=== PATIENT | female | born 1960 | race Caucasian/White ===

== ENCOUNTER → 2019-10-31 08:48 | Outpatient (BNVA) | payer MEDICAID, SELFPAY | PROVIDERS: Family Provider Nurse Practitioner; PCP Nurse Practitioner; Visit Provider Anesthesiology | DX: M54.5 Low back pain (principal); Z79.891 Long term (current) use of opiate analgesic; Z71.89 Other specified counseling | CPT/HCPCS: 62323; 64483; 77003; J1040; J2001; J3490 ==

== ENCOUNTER → 2019-12-13 14:55 | Outpatient (BNVA) | payer MEDICAID, SELFPAY | PROVIDERS: Family Provider Nurse Practitioner; PCP Nurse Practitioner; Visit Provider Anesthesiology | DX: M43.12 Spondylolisthesis, cervical region (principal); M47.22 Other spondylosis with radiculopathy, cervical region; M25.511 Pain in right shoulder; M25.512 Pain in left shoulder; M47.819 Spondylosis without myelopathy or radiculopathy, site unspecified; M47.27 Other spondylosis with radiculopathy, lumbosacral region; M54.81 Occipital neuralgia; M51.36 Other intervertebral disc degeneration, lumbar region; G43.709 Chronic migraine without aura, not intractable, without status migrainosus; F17.210 Nicotine dependence, cigarettes, uncomplicated | CPT/HCPCS: 99214 ==

== ENCOUNTER → 2020-01-02 08:50 | Outpatient (BNVA) | payer MEDICAID, SELFPAY | PROVIDERS: Family Provider Nurse Practitioner; PCP Nurse Practitioner; Visit Provider Anesthesiology | DX: M47.22 Other spondylosis with radiculopathy, cervical region (principal); M43.12 Spondylolisthesis, cervical region; M50.90 Cervical disc disorder, unspecified, unspecified cervical region; M47.819 Spondylosis without myelopathy or radiculopathy, site unspecified; M54.81 Occipital neuralgia; F17.210 Nicotine dependence, cigarettes, uncomplicated | CPT/HCPCS: 62321; J1040; J2001 ==

== ENCOUNTER → 2020-01-09 14:13 | Outpatient (BNVA) | payer MEDICAID, SELFPAY | PROVIDERS: Family Provider Nurse Practitioner; PCP Nurse Practitioner; Visit Provider Anesthesiology | DX: M50.90 Cervical disc disorder, unspecified, unspecified cervical region (principal); M47.22 Other spondylosis with radiculopathy, cervical region; M43.12 Spondylolisthesis, cervical region; M51.36 Other intervertebral disc degeneration, lumbar region; M47.27 Other spondylosis with radiculopathy, lumbosacral region; F17.210 Nicotine dependence, cigarettes, uncomplicated; Z79.891 Long term (current) use of opiate analgesic | CPT/HCPCS: 99214 ==

== ENCOUNTER → 2020-02-25 12:42 | Outpatient (BNVA) | payer MEDICAID, SELFPAY | PROVIDERS: Family Provider Nurse Practitioner; PCP Nurse Practitioner; Visit Provider Nurse Practitioner | DX: M47.22 Other spondylosis with radiculopathy, cervical region (principal); M50.90 Cervical disc disorder, unspecified, unspecified cervical region; G47.00 Insomnia, unspecified; F17.210 Nicotine dependence, cigarettes, uncomplicated; Z79.891 Long term (current) use of opiate analgesic; Z71.6 Tobacco abuse counseling | CPT/HCPCS: 99214 ==

== ENCOUNTER → 2020-06-02 12:38 | Outpatient (BNVA) | payer MEDICAID, SELFPAY | PROVIDERS: Family Provider Nurse Practitioner; PCP Nurse Practitioner; Visit Provider Anesthesiology | DX: M50.90 Cervical disc disorder, unspecified, unspecified cervical region (principal); M47.22 Other spondylosis with radiculopathy, cervical region; M43.12 Spondylolisthesis, cervical region; G43.709 Chronic migraine without aura, not intractable, without status migrainosus; M54.81 Occipital neuralgia; M51.36 Other intervertebral disc degeneration, lumbar region; M47.27 Other spondylosis with radiculopathy, lumbosacral region; M47.819 Spondylosis without myelopathy or radiculopathy, site unspecified; M54.9 Dorsalgia, unspecified; F17.210 Nicotine dependence, cigarettes, uncomplicated; Z79.891 Long term (current) use of opiate analgesic | CPT/HCPCS: 99214 ==

== ENCOUNTER → 2020-06-18 11:23 | Outpatient (BNVA) | payer MEDICAID, SELFPAY | PROVIDERS: Family Provider Nurse Practitioner; PCP Nurse Practitioner; Visit Provider Nurse Practitioner Family | DX: I10 Essential (primary) hypertension (principal); E78.2 Mixed hyperlipidemia; E55.9 Vitamin D deficiency, unspecified; E04.1 Nontoxic single thyroid nodule; D50.8 Other iron deficiency anemias | CPT/HCPCS: 80053; 80061; 82306; 84443; 85025 ==

== ENCOUNTER → 2020-07-02 11:31 | Outpatient (BNVA) | payer MEDICAID, SELFPAY | PROVIDERS: Family Provider Nurse Practitioner; PCP Nurse Practitioner; Visit Provider Nurse Practitioner Family | DX: N30.20 Other chronic cystitis without hematuria (principal); N39.0 Urinary tract infection, site not specified; F17.210 Nicotine dependence, cigarettes, uncomplicated | CPT/HCPCS: 80053; 81001 ==

== ENCOUNTER → 2020-07-31 12:44 | Outpatient (BNVA) | payer MEDICAID, SELFPAY | PROVIDERS: Family Provider Nurse Practitioner; PCP Nurse Practitioner; Visit Provider Anesthesiology | DX: M51.36 Other intervertebral disc degeneration, lumbar region (principal); M47.819 Spondylosis without myelopathy or radiculopathy, site unspecified; M43.12 Spondylolisthesis, cervical region; M47.27 Other spondylosis with radiculopathy, lumbosacral region; M50.90 Cervical disc disorder, unspecified, unspecified cervical region; M47.22 Other spondylosis with radiculopathy, cervical region; M54.9 Dorsalgia, unspecified; G47.00 Insomnia, unspecified; F17.210 Nicotine dependence, cigarettes, uncomplicated; Z79.891 Long term (current) use of opiate analgesic | CPT/HCPCS: 99214 ==

== ENCOUNTER → 2020-08-13 09:44 | Outpatient (BNVA) | payer MEDICAID, SELFPAY | PROVIDERS: Family Provider Nurse Practitioner; PCP Nurse Practitioner; Visit Provider Nurse Practitioner Family | DX: N39.0 Urinary tract infection, site not specified (principal) | CPT/HCPCS: 81003 ==

== ENCOUNTER → 2020-09-23 13:28 | Outpatient (BNVA) | payer MEDICAID, SELFPAY | PROVIDERS: Family Provider Nurse Practitioner; PCP Nurse Practitioner; Visit Provider Nurse Practitioner Family | DX: R07.81 Pleurodynia (principal) | CPT/HCPCS: 71046; 71100 ==

== ENCOUNTER → 2020-09-29 13:10 | Outpatient (BNVA) | payer MEDICAID, SELFPAY | PROVIDERS: Family Provider Nurse Practitioner; PCP Nurse Practitioner; Visit Provider Anesthesiology | DX: M54.9 Dorsalgia, unspecified (principal); F17.210 Nicotine dependence, cigarettes, uncomplicated; M47.819 Spondylosis without myelopathy or radiculopathy, site unspecified; Z79.891 Long term (current) use of opiate analgesic | CPT/HCPCS: 99214 ==

== ENCOUNTER → 2020-12-01 13:17 | Outpatient (BNVA) | payer MEDICAID, SELFPAY | PROVIDERS: Family Provider Nurse Practitioner; PCP Nurse Practitioner Family; Visit Provider Anesthesiology | DX: G89.29 Other chronic pain (principal); M51.36 Other intervertebral disc degeneration, lumbar region; M54.9 Dorsalgia, unspecified; M47.22 Other spondylosis with radiculopathy, cervical region; M43.12 Spondylolisthesis, cervical region; M47.27 Other spondylosis with radiculopathy, lumbosacral region; M50.90 Cervical disc disorder, unspecified, unspecified cervical region; G43.709 Chronic migraine without aura, not intractable, without status migrainosus; F17.210 Nicotine dependence, cigarettes, uncomplicated; Z79.891 Long term (current) use of opiate analgesic | CPT/HCPCS: 99214 ==

== ENCOUNTER 2021-01-12 06:00 | Outpatient (CLI) | payer MEDICAID, SELFPAY | END 2021-01-12 06:01 | disposition home or self-care (01) | LOC: LAB 02-28 14:38 | PROVIDERS: PCP Nurse Practitioner Family; Visit Provider Nurse Practitioner Family | DX: E78.2 Mixed hyperlipidemia (principal) | CPT/HCPCS: 80053; 80061; 84443; 85025 ==

== ENCOUNTER → 2021-01-27 13:23 | Outpatient (BNVA) | payer MEDICAID, SELFPAY | PROVIDERS: Family Provider Nurse Practitioner; PCP Nurse Practitioner Family; Visit Provider Nurse Practitioner | DX: M51.36 Other intervertebral disc degeneration, lumbar region (principal); M47.27 Other spondylosis with radiculopathy, lumbosacral region; M47.22 Other spondylosis with radiculopathy, cervical region; M50.90 Cervical disc disorder, unspecified, unspecified cervical region; M43.12 Spondylolisthesis, cervical region; G43.709 Chronic migraine without aura, not intractable, without status migrainosus; M54.81 Occipital neuralgia; G47.00 Insomnia, unspecified; F17.210 Nicotine dependence, cigarettes, uncomplicated; Z79.891 Long term (current) use of opiate analgesic | CPT/HCPCS: 99213 ==

== ENCOUNTER → 2021-04-02 13:38 | Outpatient (BNVA) | payer MEDICAID, SELFPAY | PROVIDERS: PCP Nurse Practitioner Family; Visit Provider Nurse Practitioner | DX: G89.29 Other chronic pain (principal); M51.36 Other intervertebral disc degeneration, lumbar region; M47.27 Other spondylosis with radiculopathy, lumbosacral region; M47.22 Other spondylosis with radiculopathy, cervical region; M43.12 Spondylolisthesis, cervical region; M50.90 Cervical disc disorder, unspecified, unspecified cervical region; G43.709 Chronic migraine without aura, not intractable, without status migrainosus; G43.909 Migraine, unspecified, not intractable, without status migrainosus; M54.9 Dorsalgia, unspecified; F17.210 Nicotine dependence, cigarettes, uncomplicated; Z71.6 Tobacco abuse counseling | CPT/HCPCS: 99214 ==

== ENCOUNTER → 2021-06-04 13:20 | Outpatient (BNVA) | payer MEDICAID, SELFPAY | PROVIDERS: PCP Nurse Practitioner Family; Visit Provider Nurse Practitioner | DX: M47.27 Other spondylosis with radiculopathy, lumbosacral region (principal); M51.36 Other intervertebral disc degeneration, lumbar region; M47.22 Other spondylosis with radiculopathy, cervical region; M43.12 Spondylolisthesis, cervical region; M50.90 Cervical disc disorder, unspecified, unspecified cervical region; M17.0 Bilateral primary osteoarthritis of knee; G43.709 Chronic migraine without aura, not intractable, without status migrainosus; M62.830 Muscle spasm of back; F17.210 Nicotine dependence, cigarettes, uncomplicated; Z79.891 Long term (current) use of opiate analgesic; Z71.6 Tobacco abuse counseling | CPT/HCPCS: 99214 ==

== ENCOUNTER → 2021-07-29 13:38 | Outpatient (BNVA) | payer MEDICAID, SELFPAY | PROVIDERS: PCP Nurse Practitioner Family; Visit Provider Nurse Practitioner | DX: M51.36 Other intervertebral disc degeneration, lumbar region (principal); M47.27 Other spondylosis with radiculopathy, lumbosacral region; M17.0 Bilateral primary osteoarthritis of knee; M43.12 Spondylolisthesis, cervical region; M47.22 Other spondylosis with radiculopathy, cervical region; M50.90 Cervical disc disorder, unspecified, unspecified cervical region; G43.709 Chronic migraine without aura, not intractable, without status migrainosus; M54.81 Occipital neuralgia; M62.830 Muscle spasm of back; G47.00 Insomnia, unspecified; Z79.891 Long term (current) use of opiate analgesic | CPT/HCPCS: 99214 ==

== ENCOUNTER 2021-07-29 14:55 | Outpatient (CLI) | payer MEDICAID, SELFPAY ==
--- NOTE | 2021-07-29 15:07 | XR_ITS ---
WS: [id number] LATERAL LUMBAR SPINE: 3 view. Lateral radiographs are performed in upright neutral, flexion and extension to the patient's toleranc e. HISTORY: M54.16 - Radiculopathy, lumbar region COMPARISON: 11/01/2013 L2 compression fracture by 20% is similar to the prior study. No new fracture. Retrolisthesis of L2 b y 4 mm on neutral and extension imaging. The retrolisthesis decreases to 2 mm on flexion. Facet joint arthritis is moderate at L4-5 and L5-S1. Extensive atherosclerotic plaque within the aorta. XR/XR lumbar spine f/e only [id number] IMPRESSION: 1. Stable compression fracture of L2 by 20%. 2. New very mild flexion instability at L2.
== END 2021-07-29 14:56 | disposition home or self-care (01) ==
PROVIDERS: PCP Nurse Practitioner Family; Visit Provider Nurse Practitioner
DX: M47.27 Other spondylosis with radiculopathy, lumbosacral region (principal); S32.029A Unspecified fracture of second lumbar vertebra, initial encounter for closed fracture; X58.XXXA Exposure to other specified factors, initial encounter
CPT/HCPCS: 72120

== ENCOUNTER → 2021-08-26 12:56 | Outpatient (BNVA) | payer MEDICAID, SELFPAY | PROVIDERS: PCP Nurse Practitioner Family; Visit Provider Anesthesiology | DX: M51.36 Other intervertebral disc degeneration, lumbar region (principal); M47.819 Spondylosis without myelopathy or radiculopathy, site unspecified; M43.12 Spondylolisthesis, cervical region; M50.90 Cervical disc disorder, unspecified, unspecified cervical region; M47.27 Other spondylosis with radiculopathy, lumbosacral region; M47.22 Other spondylosis with radiculopathy, cervical region; G43.709 Chronic migraine without aura, not intractable, without status migrainosus; M54.81 Occipital neuralgia; F17.200 Nicotine dependence, unspecified, uncomplicated; Z79.891 Long term (current) use of opiate analgesic; Z71.6 Tobacco abuse counseling | CPT/HCPCS: 99214 ==

== ENCOUNTER 2021-08-30 14:20 | Outpatient (CLI) | payer MEDICAID, SELFPAY ==
--- NOTE | 2021-08-30 14:29 | XR_ITS ---
WS: [id number] ANKLE LEFT TECHNIQUE: 3 views of the left ankle CLINICAL INFORMATION: M25.572 - Pain in left ankle and joints of left foot FINDINGS: Normal ankle mortise. Talar dome is normal. Normal medial malleolus. Tiny lucency in the lateral mall eolus may represent tiny nondisplaced incomplete fracture or nutrient canal. No other visualized frac tures. Mild diffuse soft tissue edema. XR/XR ankle LT min 3V* [id number] IMPRESSION: 1. Mild diffuse soft tissue edema. 2. Tiny lucency in the lateral malleolus may represent tiny nondisplaced hairl ine fracture or nutrient canal
--- NOTE | 2021-08-30 14:29 | XR_ITS ---
WS: [id number] FOOT LEFT TECHNIQUE: 3 views of the left foot CLINICAL INFORMATION: M79.672 - Pain in left foot COMPARISON: None. FINDINGS: No evidence of acute fracture or dislocation. Normal tarsal metatarsal alignment. Normal calcaneus. N ormal visualized talar dome. No acute findings. XR/XR foot LT min 3V* [id number] IMPRESSION: Normal left foot.
== END 2021-08-30 14:21 | disposition home or self-care (01) ==
PROVIDERS: PCP Nurse Practitioner Family; Visit Provider Nurse Practitioner Family
DX: M25.572 Pain in left ankle and joints of left foot (principal); M79.672 Pain in left foot; W19.XXXA Unspecified fall, initial encounter; Y92.009 Unspecified place in unspecified non-institutional (private) residence as the place of occurrence of the external cause; R60.0 Localized edema
CPT/HCPCS: 73610; 73630

== ENCOUNTER → 2021-09-03 12:18 | Outpatient (BNVA) | payer MEDICAID, SELFPAY | PROVIDERS: PCP Nurse Practitioner Family; Referring Provider Nurse Practitioner Family; Visit Provider Podiatrist Foot & Ankle Surgery | DX: S82.832D Other fracture of upper and lower end of left fibula, subsequent encounter for closed fracture with routine healing (principal); X58.XXXD Exposure to other specified factors, subsequent encounter | CPT/HCPCS: 73610 ==

== ENCOUNTER → 2021-09-23 13:37 | Outpatient (BNVA) | payer MEDICAID, SELFPAY | PROVIDERS: PCP Nurse Practitioner Family; Visit Provider Anesthesiology | DX: M51.36 Other intervertebral disc degeneration, lumbar region (principal); M47.27 Other spondylosis with radiculopathy, lumbosacral region; M47.22 Other spondylosis with radiculopathy, cervical region; M50.90 Cervical disc disorder, unspecified, unspecified cervical region; M43.12 Spondylolisthesis, cervical region; M47.819 Spondylosis without myelopathy or radiculopathy, site unspecified; G43.709 Chronic migraine without aura, not intractable, without status migrainosus; G47.00 Insomnia, unspecified; M62.830 Muscle spasm of back; F17.200 Nicotine dependence, unspecified, uncomplicated; Z79.891 Long term (current) use of opiate analgesic; Z71.6 Tobacco abuse counseling | CPT/HCPCS: 99214 ==

== ENCOUNTER → 2021-11-19 13:05 | Outpatient (BNVA) | payer MEDICAID, SELFPAY | PROVIDERS: PCP Nurse Practitioner Family; Visit Provider Anesthesiology | DX: G89.29 Other chronic pain (principal); M47.27 Other spondylosis with radiculopathy, lumbosacral region; M51.36 Other intervertebral disc degeneration, lumbar region; M47.22 Other spondylosis with radiculopathy, cervical region; M50.90 Cervical disc disorder, unspecified, unspecified cervical region; M47.819 Spondylosis without myelopathy or radiculopathy, site unspecified; M62.830 Muscle spasm of back; G43.709 Chronic migraine without aura, not intractable, without status migrainosus; G47.00 Insomnia, unspecified; M54.81 Occipital neuralgia; F17.210 Nicotine dependence, cigarettes, uncomplicated; Z79.891 Long term (current) use of opiate analgesic | CPT/HCPCS: 99214 ==

== ENCOUNTER → 2021-12-02 10:33 | Outpatient (BNVA) | payer MEDICAID, SELFPAY | PROVIDERS: PCP Nurse Practitioner Family; Visit Provider Nurse Practitioner Family | DX: M25.531 Pain in right wrist (principal); M19.131 Post-traumatic osteoarthritis, right wrist | CPT/HCPCS: 73110 ==

== ENCOUNTER → 2022-02-21 14:45 | Outpatient (BNVA) | payer MEDICAID, SELFPAY | PROVIDERS: PCP Nurse Practitioner Family; Visit Provider Nurse Practitioner Family | DX: E78.2 Mixed hyperlipidemia (principal); K21.9 Gastro-esophageal reflux disease without esophagitis; K59.03 Drug induced constipation; T40.2X5A Adverse effect of other opioids, initial encounter; J44.9 Chronic obstructive pulmonary disease, unspecified; J30.89 Other allergic rhinitis; Z76.0 Encounter for issue of repeat prescription; M17.0 Bilateral primary osteoarthritis of knee; R91.1 Solitary pulmonary nodule; F17.200 Nicotine dependence, unspecified, uncomplicated; M47.819 Spondylosis without myelopathy or radiculopathy, site unspecified; K58.1 Irritable bowel syndrome with constipation; M62.830 Muscle spasm of back | CPT/HCPCS: 80053; 80061; 84443; 85025 ==

== ENCOUNTER → 2022-03-10 15:50 | Outpatient (BNVA) | payer MEDICAID, SELFPAY | PROVIDERS: PCP Nurse Practitioner Family; Visit Provider Nurse Practitioner Family | DX: N39.0 Urinary tract infection, site not specified (principal) | CPT/HCPCS: 81003; 99213 ==

== ENCOUNTER → 2022-07-27 15:29 | Outpatient (BNVA) | payer MEDICAID, SELFPAY | PROVIDERS: PCP Nurse Practitioner Family; Visit Provider Nurse Practitioner Family | DX: K21.9 Gastro-esophageal reflux disease without esophagitis (principal); K59.03 Drug induced constipation; T40.2X5A Adverse effect of other opioids, initial encounter; J30.89 Other allergic rhinitis; J44.9 Chronic obstructive pulmonary disease, unspecified; Z76.0 Encounter for issue of repeat prescription; M62.830 Muscle spasm of back; E78.2 Mixed hyperlipidemia; M17.0 Bilateral primary osteoarthritis of knee; E78.5 Hyperlipidemia, unspecified; F41.9 Anxiety disorder, unspecified | CPT/HCPCS: 80053; 80061; 84443; 85025 ==

== ENCOUNTER → 2022-09-26 14:01 | Outpatient (BNVA) | payer MEDICAID, SELFPAY | PROVIDERS: PCP Nurse Practitioner Family; Visit Provider Urology | DX: N30.20 Other chronic cystitis without hematuria (principal); R33.9 Retention of urine, unspecified; N39.41 Urge incontinence | CPT/HCPCS: 81003; 99213 ==

== ENCOUNTER → 2022-09-30 12:06 | Outpatient (BNVA) | payer MEDICAID, SELFPAY | PROVIDERS: PCP Nurse Practitioner Family; Visit Provider Nurse Practitioner Family | DX: M47.22 Other spondylosis with radiculopathy, cervical region (principal); M51.36 Other intervertebral disc degeneration, lumbar region; M54.16 Radiculopathy, lumbar region; M47.27 Other spondylosis with radiculopathy, lumbosacral region; M43.12 Spondylolisthesis, cervical region; G47.00 Insomnia, unspecified; M50.90 Cervical disc disorder, unspecified, unspecified cervical region; R71.8 Other abnormality of red blood cells; I10 Essential (primary) hypertension; R03.0 Elevated blood-pressure reading, without diagnosis of hypertension | CPT/HCPCS: 82607; 82746 ==

== ENCOUNTER → 2023-02-14 11:38 | Outpatient (BNVA) | payer MEDICAID, SELFPAY | PROVIDERS: PCP Nurse Practitioner Family; Visit Provider Nurse Practitioner Family | DX: M62.830 Muscle spasm of back (principal); K21.9 Gastro-esophageal reflux disease without esophagitis; E78.2 Mixed hyperlipidemia; J44.9 Chronic obstructive pulmonary disease, unspecified; J30.89 Other allergic rhinitis; Z76.0 Encounter for issue of repeat prescription; F41.9 Anxiety disorder, unspecified; M17.0 Bilateral primary osteoarthritis of knee; G47.00 Insomnia, unspecified; E78.5 Hyperlipidemia, unspecified; Z13.29 Encounter for screening for other suspected endocrine disorder; M47.22 Other spondylosis with radiculopathy, cervical region | CPT/HCPCS: 80053; 80061; 84443; 85025 ==

== ENCOUNTER 2023-05-05 18:02 | Emergency (ER) | payer MEDICAID, SELFPAY ==
[2023-05-05 18:04] VITALS: BP 130/73; PULSE 100; RESP 16; TEMP 36.8; O2SAT 98; BMI 27.4
--- NOTE | 2023-05-05 18:29 | XRR_ITS ---
PROCEDURE INFORMATION: Exam: XR Right Elbow Exam date and time: 05/05/2023 6:35 PM Age: 62 years old Clinical indication: Pain; Elbow; Right; Additional info: Injury, pain, swelling TECHNIQUE: Imaging protocol: Radiologic exam of the right elbow. Views: 3 or more views. COMPARISON: No relevant prior studies available. FINDINGS: Bones/joints: Normal. Soft tissues: Normal. XR/XR elbow RT min 3V* [id number] IMPRESSION: No acute findings.
--- NOTE | 2023-05-05 18:44 | XRR_ITS ---
PROCEDURE INFORMATION: Exam: XR Right Wrist Exam date and time: 05/05/2023 6:55 PM Age: 62 years old Clinical indication: Injury or trauma; Fall; Blunt trauma (contusions or hematomas); Wrist; Right; Additional info: Fall, injury, swelling pain TECHNIQUE: Imaging protocol: Radiologic exam of the right wrist. Views: 3 or more views. COMPARISON: CR (UP EX, ) 05/05/2023 6:35 PM FINDINGS: Bones/joints: Mild to moderate diffuse interphalangeal joint and carpometacarpal joint osteoarthritis. Soft tissues: Normal. XR/XR wrist RT min 3V* [id number] IMPRESSION: Mild to moderate diffuse interphalangeal joint and carpometacarpal joint osteoarthritis.
--- NOTE | 2023-05-05 18:44 | XRR_ITS ---
PROCEDURE INFORMATION: Exam: XR Right Hand Exam date and time: 05/05/2023 6:55 PM Age: 62 years old Clinical indication: Injury or trauma; Fall; Puncture; Hand; Right; Additional info: Puncture to palm, swelling TECHNIQUE: Imaging protocol: Radiologic exam of the right hand. Views: 3 or more views. COMPARISON: CR ( EX, ) 05/05/2023 6:35 PM FINDINGS: Bones/joints: Normal. Soft tissues: Normal. XR/XR hand RT min 3V* [id number] IMPRESSION: No acute findings.
--- NOTE | 2023-05-05 19:13 | W.ED.EXTPRO ---
HPI - Extremity Problem General: Chief complaint: Extremity Injury, Upper Stated complaint: Right arm injury Time Seen by Provider: 05/05/23 18:17 Source: patient and family Mode of arrival: ambulatory Limitations: no limitations History of Present Illness: Patient presents emergency department today for evaluation treatment of right arm injury. Patient states she walked out onto her back porch when she stepped on a board that broke. She states she fell and impacted her right elbow, right wrist, and right hand on the wood. She states she had a nail puncture the palmar aspect of her right hand. She complains of pain with range of motion to the elbow, wrist, and hand. Unsure of last tetanus immunization. Review of Systems General: Reports: 10 or more systems reviewed and unremarkable except in HPI and below PFSH ED PFSH: Medical History Carpal tunnel syndrome of right wrist Cervical disc disorder, unspecified, unspecified cervical region Cervical spondylosis with radiculopathy Chronic cystitis Chronic kidney disease, stage 3 (moderate) Chronic migraine without aura, not intractable, without status migrainosus DDD (degenerative disc disease), lumbar Encounter for long-term use of opiate analgesic Environmental and seasonal allergies Facet joint disease GERD without esophagitis Hyperlipemia IBS (irritable bowel syndrome) Lumbosacral spondylosis with radiculopathy Occipital neuralgia Opioid contract exists Radiculopathy, lumbar region Recurrent UTI Smoker Unmotivated to quit Smoker unmotivated to quit Spondylolisthesis of cervical region Thyroid nodule Urgency incontinence Surgical History H/O knee surgery History of throat surgery History of tubal ligation S/P shoulder surgery Social History Smoking and tobacco status: current every day smoker cigarettes Packs smoked per day: 0.5 Years cigarettes smoked: 40 Smoking risk assessment/counseling performed?: No Alcohol intake: never Desire information about alcohol rehabilitation?: No Counseling given: No Substance/Drug Use: never Desire information about substance/drug rehabilitation?: No Counseling given: No Adopted: Yes Caregiver/support person: No Lives independently: Yes Marital status: / service: No Current occupational status: disabled Do you think of yourself as: Straight/Heterosexual Current gender identity: Female Physical Exam Const: COMMON NORMALS: no acute distress, patient oriented x3 and alert HENMT: COMMON NORMALS: normocephalic, atraumatic and hearing grossly normal bilaterally HEAD & SCALP: normocephalic and atraumatic Eye: COMMON NORMALS: Equal, round and reactive pupils present, EOMs intact bilaterally and conjunctivae normal CONJUNCTIVA: Yes conjunctivae normal PUPIL: Yes Equal, round and reactive pupils present Neck/C-Spine: COMMON NORMALS: full ROM and no JVD Lymph: LYMPHATIC: no lymphadenopathy noted Resp: COMMON NORMALS: normal respiratory effort, No retractions and No use of accessory muscles Cardio: COMMON NORMALS: no JVD and regular rate RATE: regular rate Extremity: NARRATIVE EXTREMITY EXAM: Right elbow pain to the lateral side of the elbow with tenderness on palpation. There is also swelling and some faint bruising in this area as well. No radial head tenderness. Patient does keep the arm bent around a 110 degree angle. Patient also has pain with range of motion of the right wrist and there is notable swelling-especially across the lateral portion of the wrist. No signs of abrasions or bruising. Patient has a puncture azeb to the central palmar aspect of the right hand. Patient has a covered with a bandage but there is no active bleeding. Neuro: COMMON NORMALS: patient oriented x3 SENSORIUM/ORIENTATION: Yes alert Psych: COMMON NORMALS: mental status grossly normal, Normal thought process present, cooperative and normal affect THOUGHT PROCESS: Normal thought process present Skin: COMMON NORMALS: no rashes or lesions noted and turgor normal GENERAL SKIN EXAM: no rashes or lesions noted and turgor normal Course Vital Signs: Vital signs: Vital Signs Temperature 98.2 F 05/05/23 18:04 Pulse Rate 100 05/05/23 18:04 Respiratory Rate 18 05/05/23 20:19 Blood Pressure 130/73 05/05/23 18:04 Pulse Oximetry 98 05/05/23 18:04 Oxygen Delivery Me thod Room Air 05/05/23 18:04 MDM - Extremity (Nontraumatic) Medical Decision Making X-rays are negative for acute fracture. Patient's wound was cleaned using Betadine and wrapped with nonstick Telfa and Coban. Patient was put into a sling for comfort. Discussed with her negative x-rays but, would encourage her to use her sling for the next 3 or 4 days as well as application of ice to wrist and elbow. We went over wound care instructions and bandaging with strict observation for concerns of infection. Prophylactic course of antibiotics provided. Patient is on methenamine and encouraged her to hold her medication until antibiotics are completed. Patient was encouraged to seek reevaluation if conservative management over the next week does not provide her improvement of her joint pain and noticeable increase in range of motion. Patient request something for her pain before she discharges. She has multiple allergies and states she can only take oxycodone-without Tylenol. Patient received 1 dose prior to discharge. Differential Diagnosis Unlikely gout or cellulitis (Likely contusion, abrasions, elbow fracture, elbow contusion, wrist fracture, wrist sprain, wrist contusion, puncture wound of hand) Lab Data Radiology Impressions Elbow X-Ray 05/05/23 18:29 IMPRESSION: No acute findings. Hand X-Ray 05/05/23 18:44 IMPRESSION: No acute findings. Wrist X-Ray 05/05/23 18:44 IMPRESSION: Mild to moderate diffuse interphalangeal joint and carpometacarpal joint osteoarthritis. Discharge Plan Discharge Patient Disposition: Home Clinical Impression: Puncture wound of hand, right, Contusion of elbow, right, Contusion of right wrist, initial encounter Condition: Stable Prescriptions: New cephalexin 500 mg capsule 500 mg PO Q6H 7 Days Qty: 28 0RF No Action diclofenac sodium 1 % gel 4 g TOPICAL QID 30 Days Qty: 300 5RF Rx Instructions: 2-4 g qid to affect area cholecalciferol (vitamin D3) 1,000 unit capsule 1,000 unit PO ONCE sodium chloride [Deep Sea Nasal] 0.65 % aerosol,spray 1 spray INTRANASAL TID oxycodone 20 mg tablet 20 mg PO TID PRN (Reason: pain) 30 Days Qty: 90 0RF Rx Instructions: Fill on or after 11/26/21 oxycodone 20 mg tablet 20 mg PO BID PRN (Reason: pain) 30 Days Qty: 60 0RF Rx Instructions: [facility] fill on or after 11/26/21 oxycodone 20 mg tablet 20 mg PO TID PRN (Reason: pain) 30 Days Qty: 90 0RF Rx Instructions: fill on or after 12/25/21 oxycodone 20 mg tablet 20 mg PO BID PRN (Reason: pain) 30 Days Qty: 60 0RF Rx Instructions: fill on or after 12/25/21 [id number] [Butalbital Compound W/Codeine] [id number] mg capsule 1 cap PO Q6H PRN (Reason: headache) 30 Days Qty: 12 0RF Rx Instructions: 1-2 DAILY PRN sumatriptan succinate 100 mg tablet See Rx Instructions PO .COMPLEX Qty: 20 4RF Rx Instructions: take 1 tab at onset of headache; if no relief, may repeat 1 tab after at least 2 hrs; max = 2 tabs/24 hrs PO diclofenac sodium 1 % gel See Rx Instructions .ROUTE .COMPLEX Qty: 100 5RF Dose Instruction: APPLY TWO GRAM FOUR TIMES DAILY TO AFFECTED AREA NEEDED Rx Instructions: APPLY TWO GRAM FOUR TIMES DAILY TO AFFECTED AREA NEEDED triamcinolone acetonide 0.1 % cream 1 applic TOPICAL TID 30 Days Qty: 30 2RF lidocaine-prilocaine 2.5-2.5 % cream 1 applic topical ONCE 30 Days Qty: 30 1RF methenamine hippurate 1 gram tablet 1 g PO BID Qty: 60 12RF Rx Instructions: 1 pill twice a day with 1 g vitamin C each dose solifenacin [Vesicare] 5 mg tablet 5 mg PO DAILY Qty: 60 12RF polyethylene glycol 3350 [Miralax] 17 gram/dose powder 17 g PO DAILY 30 Days Qty: 510 5RF tizanidine 4 mg capsule 4 mg PO BID PRN (Reason: muscle spasticity) 30 Days Qty: 60 5RF sucralfate [Carafate] 1 gram tablet 1 g PO BID 30 Days Qty: 60 5RF pravastatin 80 mg tablet 80 mg PO DAILY 30 Days Qty: 30 5RF montelukast [Singulair] 10 mg tablet 10 mg PO DAILY 30 Days Qty: 30 5RF levocetirizine [Xyzal] 5 mg tablet 5 mg PO BID 30 Days Qty: 60 5RF folic acid 1 mg tablet 1 mg PO DAILY 30 Days Qty: 30 5RF famotidine [Pepcid] 40 mg tablet 40 mg PO DAILY 30 Days Qty: 30 5RF citalopram 40 mg tablet 40 mg PO DAILY 30 Days Qty: 30 5RF calcium carbonate-vitamin D3 [Os-Maximino 500 + D3] 500 mg-15 mcg (600 unit) tablet 1 tab PO BID 30 Days Qty: 60 5RF buspirone 15 mg tablet 15 mg PO BID 30 Days Qty: 60 5RF Symbicort 80-4.5 mcg/actuation HFA aerosol inhaler 2 puff INHALATION BID 30 Days Qty: 1 5RF azelastine 137 mcg (0.1 %) aerosol,spray 2 spray INTRANASAL BID 30 Days Qty: 30 5RF Rx Instructions: administer into each nostril albuterol sulfate 2.5 mg /3 mL (0.083 %) solution for nebulization 2.5 mg INHALATION QID PRN (Reason: shortness of breath or wheezing) 30 Days Qty: 360 5RF albuterol sulfate [ProAir HFA] 90 mcg/actuation HFA aerosol inhaler 2 puff INHALATION Q4H PRN (Reason: shortness of breath or wheezing) 30 Days Qty: 1 5RF amitriptyline 75 mg tablet See Rx Instructions .ROUTE .COMPLEX Qty: 30 5RF Dose Instruction: TAKE ONE TABLET BY MOUTH AT BEDTIME NEEDED FOR INSOMNIA Rx Instructions: TAKE ONE TABLET BY MOUTH AT BEDTIME NEEDED FOR INSOMNIA Adult 50 Plus Probiotic 4 billion cell capsule 4,000 mmu cells PO DAILY Qty: 30 5RF Rx Instructions: administer with a meal dicyclomine 20 mg tablet 20 mg PO BID Qty: 60 5RF gabapentin 800 mg tablet See Rx Instructions .ROUTE .COMPLEX Qty: 120 5RF Dose Instruction: TAKE ONE TABLET BY MOUTH FOUR TIMES DAILY Rx Instructions: TAKE ONE TABLET BY MOUTH FOUR TIMES DAILY naloxone [Narcan] 4 mg/actuation spray,non-aerosol 1 spray intranasal Q2M Qty: 2 2RF Rx Instructions: spray 1 dose into ONE nostril, may repeat in 2-3 minutes in OTHER nostril if no response, no more than 2 doses Spiriva with HandiHaler 18 mcg capsule, w/inhalation device 1 cap inhalation DAILY Qty: 30 3RF cefdinir 300 mg capsule See Rx Instructions .ROUTE .COMPLEX Qty: 30 6RF Dose Instruction: TAKE ONE CAPSULE BY MOUTH TWICE DAILY Rx Instructions: TAKE ONE CAPSULE BY MOUTH TWICE DAILY Discharge Orders: Discharge ED (Routine); Ordered 05/05/23 Ordered By: Niya Neal Referrals: Enedelia Marina FNP-C [Primary Care Provider] - Discharge Diet: Usual diet Discharge Activity: Increase activity as tolerated Patient Instructions: Puncture Wound (ED), Contusion in Adults (ED) Activity Restrictions/Additional Instructions: X-ray today's were negative for signs of fracture. However, you do have obvious signs of injury including swelling and bruising on your right arm. For that reason we are putting you into a sling and I would encourage you to use it for the next 3 or 4 days. After conservative treatment for 5 to 7 days if you are still having significant pain or decreased range of motion I recommend being seen and reevaluated. You can apply ice to your wrist and elbow for 15 to 20 minutes at a time. We recommend washing the wound on your right hand twice a day with warm water and a mild soap. We also encourage you to keep it bandaged to prevent it becoming soiled. I am treating you with a prophylactic course of antibiotics for this puncture wound. During this time you should hold your Methenamine. You may restart that medication when your antibiotics are completed. If for any reason you have concerns for infection of the puncture wound you should be seen and reevaluated. This would include fever, streaking redness up the arm, draining of a thick green or yellow material, increased redness, or sudden swelling. Coding Level of Care Code ED Supervisor [employer] for Ti Caicedo
[2023-05-05] MEDS: tetanus-dipt-pertussis 0.5 mL SDV IM (19:42)
[2023-05-05 20:19] VITALS: RESP 18
[2023-05-05] MEDS: oxyCODONE 5 mg IR Tab/Cap PO (20:19)
[2023-05-05 20:35] VITALS: RESP 18
== END 2023-05-05 20:37 | disposition home or self-care (01) ==
PROVIDERS: Emergency Provider Physician Assistant; PCP Nurse Practitioner Family
DX: S61.431A Puncture wound without foreign body of right hand, initial encounter (principal); S50.01XA Contusion of right elbow, initial encounter; S60.211A Contusion of right wrist, initial encounter; N18.30 Chronic kidney disease, stage 3 unspecified; E78.5 Hyperlipidemia, unspecified; F17.210 Nicotine dependence, cigarettes, uncomplicated; W13.3XXA Fall through floor, initial encounter; Z23 Encounter for immunization
CPT/HCPCS: 73080; 73110; 73130; 90471; 90715; 99283

== ENCOUNTER → 2023-09-05 12:59 | Outpatient (BNVA) | payer MEDICAID, SELFPAY | PROVIDERS: PCP Nurse Practitioner Family; Visit Provider Nurse Practitioner Family | DX: J44.9 Chronic obstructive pulmonary disease, unspecified (principal); R91.1 Solitary pulmonary nodule; F17.200 Nicotine dependence, unspecified, uncomplicated; E78.2 Mixed hyperlipidemia | CPT/HCPCS: 80053; 80061; 84443; 85025 ==

== ENCOUNTER → 2023-09-12 14:07 | Outpatient (BNVA) | payer MEDICAID, SELFPAY | PROVIDERS: PCP Nurse Practitioner Family; Referring Provider Nurse Practitioner Family; Visit Provider Surgery | DX: K52.9 Noninfective gastroenteritis and colitis, unspecified (principal); K21.9 Gastro-esophageal reflux disease without esophagitis; R10.13 Epigastric pain | CPT/HCPCS: 99204 ==

== ENCOUNTER 2023-09-13 16:04 | Outpatient (CLI) | payer MEDICAID, SELFPAY ==
--- NOTE | 2023-09-13 16:30 | CTR_ITS ---
PROCEDURE INFORMATION: Exam: CT Chest Without Contrast; Diagnostic Exam date and time: 09/13/2023 4:24 PM Age: 62 years old Clinical indication: Condition or disease; Lung condition and disease; Copd; Additional info: J44.9 - chronic obstructive pulmonary disease, unspecified TECHNIQUE: Imaging protocol: Diagnostic computed tomography of the chest without contrast. Radiation optimization: All CT scans at this facility use at least one of these dose optimization techniques: automated exposure control; mA and/or kV adjustment per patient size (includes targeted exams where dose is matched to clinical indication); or iterative reconstruction. REPORTING DATA: Count of CT and Cardiac NM exams in prior 12 months: This patient has received 0 known CTs and 0 known cardiac nuclear medicine studies in the 12 months prior to the current study. COMPARISON: CT chest wo con [id number] 03/12/2019 12:48 PM RADIATION DOSE METRICS: Total DLP (mGy-cm): 344.29 FINDINGS: Lungs: Severe centrilobular emphysema noted. Extensive bullous change noted in the bilateral upper lobes. Moderate bullous disease in the right middle lobe and bilateral lower lobes. Mild atelectasis in the lower lobes. Mild fibrosis in the inferior lingula in the inferior right middle lobe. No consolidative pulmonary infiltrate noted. Pleural spaces: No pleural effusion or pneumothorax noted. Heart: No cardiomegaly. No pericardial effusion. Coronary arteries: The coronary arteries demonstrate atherosclerotic calcifications. Lymph nodes: Unremarkable. No enlarged lymph nodes. Vasculature: Atherosclerosis of the thoracic aorta. No aortic aneurysm. Bones/joints: Mild degenerative spine changes are noted. No acute fracture. Soft tissues: Unremarkable. CT/CT chest wo con [id number] IMPRESSION: 1. Centrilobular emphysema is demonstrated, as above. 2. Mild atelectasis in the lower lobes. Mild fibrosis in the inferior lingula in the inferior right middle lobe. No consolidative pulmonary infiltrate noted. COMMENTS: In the absence of a history or active diagnosis of lung cancer, it is recommended that this patient with emphysema be evaluated for enrollment in a low dose CT lung cancer screening program.
== END 2023-09-13 16:05 | disposition home or self-care (01) ==
LOC: RAD 16:05
PROVIDERS: PCP Nurse Practitioner Family; Visit Provider Nurse Practitioner Family
DX: F17.200 Nicotine dependence, unspecified, uncomplicated (principal); J43.2 Centrilobular emphysema; J44.9 Chronic obstructive pulmonary disease, unspecified; R91.1 Solitary pulmonary nodule
CPT/HCPCS: 71250

== ENCOUNTER → 2023-10-26 11:29 | Outpatient (BNVA) | payer MEDICAID, SELFPAY | PROVIDERS: PCP Nurse Practitioner Family; Visit Provider Nurse Practitioner Family | DX: N39.0 Urinary tract infection, site not specified (principal) | CPT/HCPCS: 81000 ==

== ENCOUNTER 2023-10-27 08:16 | Day surgery (SDC) | payer MEDICAID, SELFPAY ==
[2023-10-27 08:30] VITALS: BP 138/78; PULSE 76; RESP 16; TEMP 36.1; O2SAT 92
[2023-10-27 08:37] VITALS: BMI 27.7
[2023-10-27] MEDS: sodium chloride 0.9% 1,000 ML 30 ML IV (08:40)
--- NOTE | 2023-10-27 08:40 | ANES.PREANE2 ---
Pre-Anesthetic Assessment Height/Weight: Height 1.68 m Weight 78.018 kg Preop Diagnosis: abd pain, chronic diarrhea Operation Date: 10/27/23 09:00 Proposed Procedures p [id number] egd [id number] colon, G0121 screen colon A risk R10.13,K52.9,K21.9(Not Applicable) - Keaton Regan DO s Colonoscopy(Not Applicable) - Keaton Regan DO Was Beta Padmini taken within 24 hours: N/A Was Clonidine taken within 24 hours: N/A Last intake: Intake Last Liquid Date 10/26/23 Last Liquid Time 23:00 Last Solid Date 10/25/23 Last Solid Time 18:00 Social No tobacco 1.5 pack(s) per day 40 pack years Exam alert and oriented x 3 Airway Submandibular: within normal limits Cervical ROM: within normal limits Mallampati: Class I Dentition: false History/ROS No significant history except as noted Pulmonary Asthma, Cough and Sleep Apnea CV/HEM Coronary Artery Disease and Murmur Chronic Renal Insufficiency Hepatic None reported GI Gastroesophageal Reflux Disease Metabolic Hyperlipidemia [facility] Fibromyalgia, Lower Back Pain and Osteoarthritis/DJD Neuropsych Depression and Headache Anesthetic Plan ASA status: 3 Anesthesia: MAC Risk of > 500 ml blood loss (7ml/kg in children): No Medications/Allergies Home Medications Medication Instructions Recorded Confirmed Last Taken Type sodium chloride 0.65 % nasal spray 1 spray intranasal TID 10/30/19 10/26/23 10/26/23 History aerosol (Deep Sea Nasal) diclofenac sodium 1 % topical gel 4 g topical QID 30 days #300 grams 07/29/21 10/27/23 Unknown Rx nwclxxj-mxisorbvlb-JBR-caffeine 30 1 cap PO Q6H PRN headache 30 days 11/19/21 10/27/23 10/26/23 Rx mg-50 mg-325 mg-40 mg capsule #12 caps (Butalbital Compound with Codeine) Narcan 4 mg/actuation nasal spray 1 spray intranasal Q2M #2 ea 02/08/22 10/26/23 10/26/23 Rx (naloxone) tiotropium bromide 18 mcg capsule 1 cap inhalation DAILY #30 caps 03/23/22 10/27/23 10/26/23 Rx with inhalation device (Spiriva with HandiHaler) solifenacin 5 mg tablet (Vesicare) 5 mg PO DAILY #60 tabs 09/26/22 10/26/23 10/26/23 Rx diclofenac sodium 1 % topical gel See Rx Instructions .Route 09/30/22 10/26/23 10/26/23 Rx .COMPLEX #100 grams lidocaine-prilocaine 2.5 %-2.5 % 1 applic topical ONCE 30 days #30 12/21/22 10/26/23 10/26/23 Rx topical cream grams triamcinolone acetonide 0.1 % 1 applic topical TID 30 days #30 12/21/22 10/26/23 10/26/23 Rx topical cream grams albuterol sulfate 2.5 mg/3 mL 2.5 mg (3 mL) inhalation QID PRN 09/05/23 10/27/23 10/26/23 Rx (0.083 %) solution for nebulization shortness of breath or wheezing 30 days #360 mL albuterol sulfate 90 mcg/actuation 2 puff inhalation Q4H PRN 09/05/23 10/27/23 10/26/23 Rx aerosol inhaler (ProAir HFA) shortness of breath or wheezing 30 days #1 ea amitriptyline 75 mg tablet See Rx Instructions .Route 09/05/23 10/27/23 10/26/23 Rx .COMPLEX #30 tabs azelastine 137 mcg (0.1 %) nasal 2 spray intranasal BID 30 days #30 09/05/23 10/27/23 Unknown Rx spray aerosol mL budesonide-formoterol HFA 80 2 puff inhalation BID 30 days #1 ea 09/05/23 10/27/23 10/26/23 Rx mcg-4.5 mcg/actuation aerosol inhaler (Symbicort) buspirone 15 mg tablet 15 mg PO BID 30 days #60 tabs 09/05/23 10/27/23 10/26/23 Rx calcium carbonate 500 mg-vitamin 1 tab PO BID 30 days #60 tabs 09/05/23 10/27/23 10/26/23 Rx D3 15 mcg (600 unit) tablet (Os-Maximino 500 + D3) citalopram 40 mg tablet 40 mg PO DAILY 30 days #30 tabs 09/05/23 10/27/23 10/26/23 Rx dicyclomine 20 mg tablet 20 mg PO BID #60 tabs 09/05/23 10/26/23 10/26/23 Rx folic acid 1 mg tablet 1 mg PO DAILY 30 days #30 tabs 09/05/23 10/27/23 10/26/23 Rx gabapentin 800 mg tablet See Rx Instructions .Route 09/05/23 10/27/23 10/26/23 Rx .COMPLEX #120 tabs lactobacillus combination no.9 4 4,000 mmu cells PO DAILY #30 caps 09/05/23 10/26/23 10/26/23 Rx billion cell capsule (Adult 50 Plus Probiotic) levocetirizine 5 mg tablet (Xyzal) 5 mg PO BID 30 days #60 tabs 09/05/23 10/27/23 10/26/23 Rx montelukast 10 mg tablet 10 mg PO DAILY 30 days #30 tabs 09/05/23 10/27/23 10/26/23 Rx (Singulair) pravastatin 80 mg tablet 80 mg PO DAILY 30 days #30 tabs 09/05/23 10/27/23 10/26/23 Rx prednisone 20 mg tablet 20 mg PO BID #10 tabs 09/05/23 10/27/23 10/26/23 Rx promethazine-DM 6.25 mg-15 mg/5 mL 5 - 10 ml PO Q6H PRN cough #240 mL 09/05/23 10/26/23 10/26/23 Rx oral syrup sucralfate 1 gram tablet (Carafate) 1 g PO BID 30 days #60 tabs 09/05/23 10/27/23 Unknown Rx pantoprazole 40 mg tablet,delayed 40 mg PO BID 14 days #28 tabs 09/12/23 10/27/23 10/26/23 Rx release (Protonix) sumatriptan succinate 100 mg tablet See Rx Instructions PO .COMPLEX 09/26/23 10/26/23 10/26/23 Rx #20 tabs cefdinir 300 mg capsule See Rx Instructions .Route 10/26/23 10/27/23 1 Month Ago Rx .COMPLEX #30 caps ~09/26/23 methenamine hippurate 1 gram tablet 1 g PO BID Recurrent UTI #60 tabs 10/26/23 10/27/23 10/26/23 Rx tizanidine 6 mg capsule 6 mg PO BID PRN muscle spasticity 0110/27/23 10/26/23 Rx 30 days #60 caps Allergies Allergy/AdvReac Type Severity Reaction Status Date / Time aspirin Allergy ADR-Chest Verified 10/26/23 12:20 Pain methadone Allergy ADR-Nausea Verified 10/26/23 12:20 morphine Allergy CONSTIPATIO Verified 10/26/23 12:20 N tamsulosin [From Flomax] Allergy ADR-Hyperte Verified 10/26/23 12:20 nsion tramadol [From Ultram] Allergy ADR-Itching Verified 10/26/23 12:20 acetaminophen [From Tylenol] AdvReac Unknown KIDNEY Verified 10/26/23 12:20 FAILURE ibuprofen AdvReac Unknown KIDNEY Verified 10/26/23 12:20 FAILURE PFS Anesthesia Medical History Vitamin D deficiency Essential (primary) hypertension Other iron deficiency anemias Gross hematuria Breast Cancer Screening Urgency incontinence Chronic cystitis Thyroid nodule Smoker unmotivated to quit Chronic kidney disease, stage 3 (moderate) Recurrent UTI Carpal tunnel syndrome of right wrist Cervical disc disorder, unspecified, unspecified cervical region Occipital neuralgia Lumbosacral spondylosis with radiculopathy Spondylolisthesis of cervical region Radiculopathy, lumbar region Chronic migraine without aura, not intractable, without status migrainosus DDD (degenerative disc disease), lumbar Cervical spondylosis with radiculopathy Opioid contract exists Encounter for long-term use of opiate analgesic Facet joint disease Smoker Unmotivated to quit Environmental and seasonal allergies GERD without esophagitis Hyperlipemia IBS (irritable bowel syndrome) Surgical History Hx of tonsillectomy H/O wrist surgery History of tubal ligation S/P shoulder surgery History of throat surgery H/O knee surgery Social History Smoking and tobacco/nicotine status: current every day tobacco/nicotine user cigarettes Packs smoked per day: 0.5 Years cigarettes smoked: 40 Alcohol intake: never Substance/Drug Use: never Adopted: Yes Caregiver/support person: No Lives independently: Yes Marital status: / service: No Current occupational status: disabled Do you think of yourself as: Straight/Heterosexual Current gender identity: Female Data Anesthesia Cardiac Studies: No Data to Display
[2023-10-27 09:52] VITALS: BP 190/79; PULSE 70; RESP 18; TEMP 36.1; O2SAT 92
[2023-10-27 10:15] VITALS: BP 193/66; PULSE 65; RESP 18; O2SAT 92
--- NOTE | 2023-10-27 13:09 | ANE.PACU2 ---
Inpatient post-anesthesia follow up: Airway intact: Yes Vital signs: Temperature 97.0 F Pulse Rate 65 Respiratory Rate 18 Blood Pressure 193/66 Pulse Oximetry 92 Oxygen Delivery Me thod Room Air Oxygen Flow Rate Fraction of Inspir ed Oxygen Hydration adequate: Yes Nausea and vomiting: No Pain level: 2 Mental status: Baseline
[2023-10-28 15:25] LABS: Clostridium Difficile PCR NOT DETECTED (NOT DETECTED)
== END 2023-10-27 10:42 | disposition home or self-care (01) ==
PROVIDERS: PCP Nurse Practitioner Family; Visit Provider Surgery
PROC: 0DJ08ZZ Inspection of Upper Intestinal Tract, Via Natural or Artificial Opening Endoscopic (ICD-10-PCS; CPT 43235; principal; 2023-10-27 09:00)
PROC: 0DJD8ZZ Inspection of Lower Intestinal Tract, Via Natural or Artificial Opening Endoscopic (ICD-10-PCS; CPT 45378; 2023-10-27 09:00)
DX: K52.9 Noninfective gastroenteritis and colitis, unspecified (principal); K57.30 Diverticulosis of large intestine without perforation or abscess without bleeding; K29.50 Unspecified chronic gastritis without bleeding; D12.2 Benign neoplasm of ascending colon; I12.9 Hypertensive chronic kidney disease with stage 1 through stage 4 chronic kidney disease, or unspecified chronic kidney disease; N18.30 Chronic kidney disease, stage 3 unspecified; K21.9 Gastro-esophageal reflux disease without esophagitis; F17.210 Nicotine dependence, cigarettes, uncomplicated; E78.5 Hyperlipidemia, unspecified; G47.30 Sleep apnea, unspecified; I25.10 Atherosclerotic heart disease of native coronary artery without angina pectoris; M79.7 Fibromyalgia
CPT/HCPCS: 43239; 45380; 45385; 82274; 83630; 87045; 87177; 87209; 87427; 87449; 87493; 88305; 88342; J2704; J7030

== ENCOUNTER → 2023-11-14 10:18 | Outpatient (BNVA) | payer MEDICAID, SELFPAY | PROVIDERS: PCP Nurse Practitioner Family; Visit Provider Surgery | DX: R10.13 Epigastric pain (principal); K52.9 Noninfective gastroenteritis and colitis, unspecified; R11.2 Nausea with vomiting, unspecified | CPT/HCPCS: 99214 ==

== ENCOUNTER → 2023-11-17 09:18 | Outpatient (BNVA) | payer MEDICAID, SELFPAY | PROVIDERS: PCP Nurse Practitioner Family; Visit Provider Internal Medicine Pulmonary Disease | DX: J41.0 Simple chronic bronchitis (principal); F17.210 Nicotine dependence, cigarettes, uncomplicated | CPT/HCPCS: 99214 ==

== ENCOUNTER 2023-11-20 15:30 | Outpatient (CLI) | payer MEDICAID, SELFPAY ==
--- NOTE | 2023-11-20 15:45 | XRR_ITS ---
PROCEDURE INFORMATION: Exam: XR Temporomandibular Joints, Open and Closed Mouth Exam date and time: 11/20/2023 4:23 PM Age: 62 years old Clinical indication: Jaw pain; Additional info: R68.84 - jaw pain TECHNIQUE: Imaging protocol: XR of the bilateral temporomandibular joints, open and closed mouth views. COMPARISON: CT head wo con* [id number] 16/11/2018 17:16 FINDINGS: Sinuses: Well aerated. No opacification. Bones/joints: No fracture. Normal temporomandibular joints. The patient is edentulous. Soft tissues: Unremarkable. XR/[place] [id number] IMPRESSION: Unremarkable.
--- NOTE | 2023-11-20 16:15 | US_ITS ---
WS: [id number] RIGHT UPPER QUADRANT ULTRASOUND HISTORY: abdonimal pain COMPARISON: None available. Liver: 13.7 cm in length. Normal size liver and echogenicity. No bile duct dilatation or mass. Portal Vein: Normal hepatopetal flow with monophasic waveform. Gallbladder: Normally distended gallbladder with no stones or wall thickening. CBD: 0.6 cm Pancreas: Normal size and echogenicity. Right kidney: 10.1 cm in length. Normal size and echogenicity. No hydronephrosis or mass. Aorta and IVC: Unremarkable abdominal aorta and IVC. No ascites. IMPRESSION: Normal RIGHT upper quadrant ultrasound.
== END 2023-11-20 15:31 | disposition home or self-care (01) ==
LOC: RAD 15:30
PROVIDERS: PCP Nurse Practitioner Family; Visit Provider Surgery
DX: S03.00XA Dislocation of jaw, unspecified side, initial encounter (principal); X58.XXXA Exposure to other specified factors, initial encounter; R10.13 Epigastric pain
CPT/HCPCS: 70330; 76705

== ENCOUNTER 2023-12-15 09:42 | Outpatient (CLI) | payer MEDICAID, SELFPAY ==
--- NOTE | 2023-12-15 10:00 | NM_ITS ---
WS: [id number] NUCLEAR MEDICINE HIDA SCAN CLINICAL INFORMATION: epigastric pain TECHNIQUE: Following intravenous administration of 7.4 mCi of technetium 99m mebrofenin, images of th e abdomen were obtained over the course of 60 minutes. Next, gallbladder ejection fraction was determ ined by obtaining preprandial and one-hour postprandial images of the gallbladder following oral marvel stion of Ensure. COMPARISON: None. FINDINGS: Normal hepatic uptake at 5 minutes. Normal hepatic excretion. Gallbladder is visualized by 10 minutes . No evidence of acute cholecystitis. Normal common bile duct and small bowel activity. No evidence o f acute cholecystitis. Gallbladder ejection fraction 90% within normal limits. No evidence of chronic cholecystitis. IMPRESSION: 1. No evidence of acute or chronic cholecystitis. 2. Gallbladder ejection fraction 90% within normal limits.
== END 2023-12-15 09:43 | disposition home or self-care (01) ==
PROVIDERS: PCP Nurse Practitioner Family; Visit Provider Surgery
DX: R10.13 Epigastric pain (principal)
CPT/HCPCS: 78227; A9537

== ENCOUNTER → 2023-12-25 13:25 | Outpatient (BNVA) | payer MEDICAID, SELFPAY | PROVIDERS: PCP Nurse Practitioner Family; Visit Provider Surgery | DX: K80.50 Calculus of bile duct without cholangitis or cholecystitis without obstruction (principal); R11.2 Nausea with vomiting, unspecified; R10.13 Epigastric pain; K52.9 Noninfective gastroenteritis and colitis, unspecified | CPT/HCPCS: 99214 ==

== ENCOUNTER 2024-01-11 07:25 | Day surgery (SDC) | payer MEDICAID, SELFPAY ==
[2024-01-11] VITALS (11 sets, daily range): BP systolic 138–175; BP diastolic 54–76; PULSE 67–77; RESP 14–22; TEMP 36.2–36.6; O2SAT 91–100; BMI 27.4
--- NOTE | 2024-01-11 07:59 | W.PM.OPSUD ---
Surgery/Procedure H&P Update DATE OF PROCEDURE: January 11, 2024 DATE H&P PERFORMED: 12/25/23 H&P UPDATE INFORMATION: I have reviewed H&P completed within last 30 days, I have examined patient prior to procedure and No changes to prior documentation PLANNED PROCEDURE: Operation Date: 01/11/24 08:45 Proposed Procedures p ap lennie [id number] K80.50, R11.2 ,R10.13(Not Applicable) - Keaton Regan, DO
[2024-01-11] MEDS: sodium chloride 0.9% 1,000 ML 30 ML IV (08:25)
--- NOTE | 2024-01-11 08:35 | ANES.PREANE2 ---
Pre-Anesthetic Assessment Height/Weight: Height 1.68 m Weight 77.111 kg Temp Pulse Resp BP Pulse Ox O2 Del Method 97.4 F L 67 16 138/75 94 Room Air 01/11/24 08:02 01/11/24 08:02 01/11/24 08:02 01/11/24 08:02 01/11/24 08:02 01/11/24 08:07 Operation Date: 01/11/24 08:45 Proposed Procedures p ap lennie 12594 K80.50, R11.2 ,R10.13(Not Applicable) - Keaton Regan DO Familial anesthetic complications: none Was Beta Padmini taken within 24 hours: N/A Was Clonidine taken within 24 hours: N/A Last intake: Intake Last Liquid Date 01/10/24 Last Liquid Time 23:55 Last Solid Date 01/10/24 Last Solid Time 21:00 Social Tobacco (1.5ppd) and No alcohol denies other drug use. Exam alert and oriented x 3 Airway Submandibular: within normal limits Cervical ROM: within normal limits Mallampati: Class II Dentition: false Pulmonary Asthma, Chronic Obstructive Pulmonary Disease, Cough and Exertional Dyspnea CV/HEM None reported Chronic Renal Insufficiency Hepatic None reported Metabolic Hyperlipidemia Musc/sk None reported Neuropsych Anxiety Anesthetic Plan ASA status: 3 Anesthesia: Anesthesia Evaluation and General Risk of > 500 ml blood loss (7ml/kg in children): No Medications/Allergies Home Medications Medication Instructions Recorded Confirmed Last Taken Type sodium chloride 0.65 % nasal spray 1 spray intranasal TID 10/30/19 01/10/24 10/26/23 History aerosol (Deep Sea Nasal) diclofenac sodium 1 % topical gel 4 g topical QID 30 days #300 grams 07/29/21 01/10/24 Unknown Rx smwfpvm-qrmqevkwcr-SQK-caffeine 30 1 cap PO Q6H PRN headache 30 days 11/19/21 01/10/24 10/26/23 Rx mg-50 mg-325 mg-40 mg capsule #12 caps (Butalbital Compound with Codeine) Narcan 4 mg/actuation nasal spray 1 spray intranasal Q2M #2 ea 02/08/22 01/10/24 10/26/23 Rx (naloxone) diclofenac sodium 1 % topical gel See Rx Instructions .Route 09/30/22 01/10/24 10/26/23 Rx .COMPLEX #100 grams lidocaine-prilocaine 2.5 %-2.5 % 1 applic topical ONCE 30 days #30 12/21/22 01/10/24 10/26/23 Rx topical cream grams triamcinolone acetonide 0.1 % 1 applic topical TID 30 days #30 12/21/22 01/10/24 10/26/23 Rx topical cream grams albuterol sulfate 2.5 mg/3 mL 2.5 mg (3 mL) inhalation QID PRN 09/05/23 01/10/24 10/26/23 Rx (0.083 %) solution for nebulization shortness of breath or wheezing 30 days #360 mL albuterol sulfate 90 mcg/actuation 2 puff inhalation Q4H PRN 09/05/23 01/10/24 10/26/23 Rx aerosol inhaler (ProAir HFA) shortness of breath or wheezing 30 days #1 ea amitriptyline 75 mg tablet See Rx Instructions .Route 09/05/23 01/10/24 01/10/24 Rx .COMPLEX #30 tabs azelastine 137 mcg (0.1 %) nasal 2 spray intranasal BID 30 days #30 09/05/23 01/10/24 01/10/24 Rx spray aerosol mL buspirone 15 mg tablet 15 mg PO BID 30 days #60 tabs 09/05/23 01/10/24 01/10/24 Rx calcium carbonate 500 mg-vitamin 1 tab PO BID 30 days #60 tabs 09/05/23 01/10/24 01/10/24 Rx D3 15 mcg (600 unit) tablet (Os-Maximino 500 + D3) citalopram 40 mg tablet 40 mg PO DAILY 30 days #30 tabs 09/05/23 01/10/24 01/10/24 Rx dicyclomine 20 mg tablet 20 mg PO BID #60 tabs 09/05/23 01/10/24 01/10/24 Rx folic acid 1 mg tablet 1 mg PO DAILY 30 days #30 tabs 09/05/23 01/10/24 01/10/24 Rx levocetirizine 5 mg tablet (Xyzal) 5 mg PO BID 30 days #60 tabs 09/05/23 01/10/24 01/10/24 Rx montelukast 10 mg tablet 10 mg PO DAILY 30 days #30 tabs 09/05/23 01/10/24 01/10/24 Rx (Singulair) pravastatin 80 mg tablet 80 mg PO DAILY 30 days #30 tabs 09/05/23 01/10/24 01/10/24 Rx promethazine-DM 6.25 mg-15 mg/5 mL 5 - 10 ml PO Q6H PRN cough #240 mL 09/05/23 01/10/24 10/26/23 Rx oral syrup sucralfate 1 gram tablet (Carafate) 1 g PO BID 30 days #60 tabs 09/05/23 01/10/24 Unknown Rx sumatriptan succinate 100 mg tablet See Rx Instructions PO .COMPLEX 09/26/23 01/10/24 10/26/23 Rx #20 tabs methenamine hippurate 1 gram tablet 1 g PO BID Recurrent UTI #60 tabs 10/26/23 01/10/24 10/26/23 Rx tizanidine 6 mg capsule 6 mg PO BID PRN muscle spasticity 10/26/23 01/10/24 01/10/24 Rx 30 days #60 caps cefdinir 300 mg capsule See Rx Instructions .Route 11/17/23 01/10/24 Unknown History .COMPLEX PRN uti budesonide-formoterol HFA 80 2 puff inhalation BID #10.2 grams 11/20/23 01/10/24 Unknown Rx mcg-4.5 mcg/actuation aerosol inhaler (Symbicort) fluticasone fur. 100 mcg-umeclid 1 inh inhalation DAILY #60 ea 11/21/23 01/10/24 Unknown Rx 62.5 mcg-vilant 25 mcg inhalat.powder (Trelegy Ellipta) gabapentin 800 mg tablet See Rx Instructions .Route 11/29/23 01/10/24 01/10/24 Rx .COMPLEX #120 tabs Allergies Allergy/AdvReac Type Severity Reaction Status Date / Time aspirin Allergy ADR-Chest Verified 01/10/24 13:01 Pain methadone Allergy ADR-Nausea Verified 01/10/24 13:01 morphine Allergy CONSTIPATIO Verified 01/10/24 13:01 N tamsulosin [From Flomax] Allergy ADR-Hyperte Verified 01/10/24 13:01 nsion tramadol [From Ultram] Allergy ADR-Itching Verified 01/10/24 13:01 acetaminophen [From Tylenol] AdvReac Unknown KIDNEY Verified 01/10/24 13:01 FAILURE ibuprofen AdvReac Unknown KIDNEY Verified 01/10/24 13:01 FAILURE Current Medications Generic Name Dose Route Start Last Admin Trade Name Dedrick PRN Reason Stop Dose Admin Sodium Chloride 1,000 mls @ 30 mls/hr 01/11/24 08:00 01/11/24 08:25 Sodium Chloride 0.9% IV 01/12/24 07:59 30 mls/hr .Q24H SANJAY Administration PFSH Anesthesia Medical History Vitamin D deficiency Essential (primary) hypertension Other iron deficiency anemias Gross hematuria Breast Cancer Screening Urgency incontinence Chronic cystitis Thyroid nodule Smoker unmotivated to quit Chronic kidney disease, stage 3 (moderate) Recurrent UTI Carpal tunnel syndrome of right wrist Cervical disc disorder, unspecified, unspecified cervical region Occipital neuralgia Lumbosacral spondylosis with radiculopathy Spondylolisthesis of cervical region Radiculopathy, lumbar region Chronic migraine without aura, not intractable, without status migrainosus DDD (degenerative disc disease), lumbar Cervical spondylosis with radiculopathy Opioid contract exists Encounter for long-term use of opiate analgesic Facet joint disease Smoker Unmotivated to quit Environmental and seasonal allergies GERD without esophagitis Hyperlipemia IBS (irritable bowel syndrome) Surgical History Hx of tonsillectomy H/O wrist surgery History of tubal ligation S/P shoulder surgery History of throat surgery H/O knee surgery Social History Smoking and tobacco/nicotine status: current every day tobacco/nicotine user cigarettes Packs smoked per day: 1.5 Years cigarettes smoked: 40 Alcohol intake: never Substance/Drug Use: never Adopted: Yes Caregiver/support person: No Lives independently: Yes Marital status: / service: No Current occupational status: disabled Do you think of yourself as: Straight/Heterosexual Current gender identity: Female Data Anesthesia Cardiac Studies: No Data to Display
[2024-01-11] MEDS: ceFAZolin 2,000 MG in sodium chloride 0.9% (plus) 50 ML 100 MG IV (08:42)
[2024-01-11] MEDS: lidocaine-epi 2% PF 1:200,000 20 mL SDV XX (09:08)
--- NOTE | 2024-01-11 09:21 | P.OP_ITS ---
Operative Report Date of procedure: January 11, 2024 Surgeon: Keaton Regan DO Brief History: Very pleasant 63-year-old female who presented my office with abdominal pain. She was diagnosed with biliary colic, biliary hyperkinesia and right upper quadrant syndrome. Laparoscopic cholecystectomy was indicated. The risk and benefits of the procedure, especially the fact that there is a 20 to 30% chance of her symptoms not being completely relieved with cholecystectomy, were explained to the patient. She was understanding of the risks and wished to proceed. Procedure: Preoperative diagnosis: Biliary colic, biliary hyperkinesia and right upper quadrant syndrome Postoperative diagnosis: Same Procedure performed: Laparoscopic cholecystectomy Surgeon: Dr. Keaton Regan DO Estimated blood loss: 5 mL Specimens: Gallbladder to pathology Complications: None apparent Description of procedure: Patient was wheeled into the operative room and placed on the OR table in a sup ine position. Abdomen was inspected prepped and draped in usual sterile fashion. Time-out was performed and all present were in agreement. A 15 blade scalp was used to make a stab incision in the left upper quadrant and intra- abdominal insufflation was achieved using a Veress needle. After localizing the tissue incisions were made and a 5 millimeter trocar was placed into the umbilicus as well as 2 in the right upper quadrant. A 12 millimeter trocar was placed in the epigastrium. Gallbladder was grasped and elevated. The triangle of Calot was carefully dissected using blunt dissection and electrocautery until the triangle of Calot clearly identified. The cystic duct was clipped proximally and double clipped distally. The duct was then ligated proximally. The cystic artery was doubly clipped and ligated. The gallbladder was then removed from the liver bed using electrocautery. The gallbladder was removed from the abdomen using an Endo-Catch bag through the epigastric incision. The liver bed was inspected and no bleeding was seen. The abdomen was irrigated and suctioned. All ports removed. Skin was washed and dried. Incisions were closed with 4-0 Monocryl in a subcuticular interrupted fashion. Skin glue was applied. Patient tolerated the procedure well.
--- NOTE | 2024-01-11 11:25 | ANE.PACU2 ---
Inpatient post-anesthesia follow up: Airway intact: Yes Vital signs: Temperature 97.9 F Pulse Rate 67 Respiratory Rate 16 Blood Pressure 163/54 Pulse Oximetry 94 Oxygen Delivery Me thod Room Air Oxygen Flow Rate 2 Fraction of Inspir ed Oxygen Hydration adequate: Yes Nausea and vomiting: No Pain level: 1 Mental status: Baseline
== END 2024-01-11 11:25 | disposition home or self-care (01) ==
PROVIDERS: PCP Nurse Practitioner Family; Visit Provider Surgery
PROC: 0FT44ZZ Resection of Gallbladder, Percutaneous Endoscopic Approach (ICD-10-PCS; CPT 47562; principal; 2024-01-11 08:45)
DX: K81.1 Chronic cholecystitis (principal); J44.9 Chronic obstructive pulmonary disease, unspecified; E78.5 Hyperlipidemia, unspecified; F17.210 Nicotine dependence, cigarettes, uncomplicated; I12.9 Hypertensive chronic kidney disease with stage 1 through stage 4 chronic kidney disease, or unspecified chronic kidney disease; N18.30 Chronic kidney disease, stage 3 unspecified
CPT/HCPCS: 47562; 88304; J0690; J1100; J2250; J2405; J2704; J2710; J3010; J3490; J7030

== ENCOUNTER → 2024-02-02 10:48 | Outpatient (BNVA) | payer MEDICAID, SELFPAY | PROVIDERS: PCP Nurse Practitioner Family; Visit Provider Surgery | DX: Z90.49 Acquired absence of other specified parts of digestive tract (principal); R10.13 Epigastric pain; R11.2 Nausea with vomiting, unspecified; K52.9 Noninfective gastroenteritis and colitis, unspecified; Z98.890 Other specified postprocedural states | CPT/HCPCS: 99024 ==

== ENCOUNTER 2024-03-04 17:47 | Emergency (ER) | payer MEDICAID, SELFPAY ==
[2024-03-04 17:59] VITALS: BP 139/74; PULSE 79; RESP 14; TEMP 36.9; O2SAT 92
--- NOTE | 2024-03-04 18:05 | XRR_ITS ---
PROCEDURE INFORMATION: Exam: XR Left Ribs with PA Chest Exam date and time: 03/04/2024 6:11 PM Age: 63 years old Clinical indication: Injury or trauma; Fall; Rib area, left side; Blunt trauma TECHNIQUE: Imaging protocol: Radiologic exam of the left ribs with PA chest. Views: 3 views COMPARISON: 1. CT chest wo con [id number] 09/13/2023 4:24 PM 2. Chest radiograph 09/23/2020 FINDINGS: Lungs: Stable qtko-ss-cpdpkudb interstitial prominence. Worsening linear opacities in the kvbkj-dwdlejm-esac-left lung base is likely related to decreased lung volumes and basilar atelectasis. Pleural spaces: No pleural effusion or pneumothorax. Heart/Mediastinum: Heart size is within normal limits. Vasculature: Atherosclerotic calcifications of the aorta are noted. Bones/joints: Questionable minimally displaced left lateral 4th rib fracture. No other evidence of displaced left rib fracture. XR/XR ribs LT mn 3V w CXR1V [id number] IMPRESSION: 1. Questionable minimally displaced left lateral 4th rib fracture. No pneumothorax. Correlate with physical exam. 2. Worsening linear opacities in the hntxu-zsddjcf-empt-left lung base is likely related to decreased lung volumes and basilar atelectasis.
--- NOTE | 2024-03-04 19:34 | W.ED.FALL ---
Documented by User: OPHELIA Torres 03/04/24 20:13 HPI - Fall General: Chief Complaint: Fall Stated Complaint: fall, rib pain Time Seen by Provider: 03/04/24 18:57 Source: patient Mode of arrival: ambulatory Limitations: no limitations History of Present Illness: Patient is a 63-year-old female presenting to the emergency department complaining of left side pain onset 1 day. Patient notes last night she was working outside with horses, when she tripped and fell onto a rock, landing on her left side. She notes that she has had increasingly worsening pain with deep breathing. She has not been taking anything for her pain. She does note a history of COPD. She uses albuterol inhaler as well as breathing treatments at home. No other injuries noted and patient did not hit her head. Patient currently stating the pain is an 8/10 and is only worsened with deep breathing or coughing. No chest pain, flail chest, syncope, palpitations, or other symptoms reported at this time. MD complaint: fall Onset (ago): day(s) Fall from: standing Fall witnessed: no Place fall occurred: home Loss of consciousness: None Prolonged down time: no Symptoms prior to fall: none Context: tripped/slipped Location of injury: chest (Left ribs) Severity: severe Severity scale (1-10): 8 Associated symptoms-after fall: Reports no associated symptoms; Denies abdominal pain, chest pain, headache(s), lightheadedness or neck pain Review of Systems General: Reports: 10 or more systems reviewed and unremarkable except in HPI and below Const: Denies: fever(s), chills or fatigue Eyes: Denies: change in vision ENMT: Denies: throat pain, ear or mastoid pain or nasal discharge Card: Denies: chest pain, palpitations, swelling of feet/ankles or lightheadedness Resp: Reports: pain on inspiration; Denies: dyspnea, productive cough or wheezing GI: Denies: abdominal pain, nausea, vomiting, diarrhea or constipation : Denies: flank pain, difficulty voiding, dysuria or urinary frequency Musc: Reports: other (Left rib pain); Denies: neck pain, back pain or joint pain Skin/Breast: Denies: rash Neuro: Denies: headache(s), numbness in extremities or weakness in extremities PFS ED PFSH: Medical History Vitamin D deficiency Essential (primary) hypertension Other iron deficiency anemias Gross hematuria Breast Cancer Screening Urgency incontinence Chronic cystitis Thyroid nodule Smoker unmotivated to quit Chronic kidney disease, stage 3 (moderate) Recurrent UTI Carpal tunnel syndrome of right wrist Cervical disc disorder, unspecified, unspecified cervical region Occipital neuralgia Lumbosacral spondylosis with radiculopathy Spondylolisthesis of cervical region Radiculopathy, lumbar region Chronic migraine without aura, not intractable, without status migrainosus DDD (degenerative disc disease), lumbar Cervical spondylosis with radiculopathy Opioid contract exists Encounter for long-term use of opiate analgesic Facet joint disease Smoker Unmotivated to quit Environmental and seasonal allergies GERD without esophagitis Hyperlipemia IBS (irritable bowel syndrome) Surgical History Hx of tonsillectomy H/O wrist surgery History of tubal ligation S/P shoulder surgery History of throat surgery H/O knee surgery Social History Smoking and tobacco/nicotine status: current every day tobacco/nicotine user cigarettes Packs smoked per day: 1.5 Years cigarettes smoked: 40 Alcohol intake: never Substance/Drug Use: never Adopted: Yes Caregiver/support person: No Lives independently: Yes Marital status: / service: No Current occupational status: disabled Do you think of yourself as: Straight/Heterosexual Current gender identity: Female Physical Exam Const: COMMON NORMALS: no acute distress, patient oriented x3 and no limitations GENERAL APPEARANCE: cooperative, comfortable and well developed ORIENTATION/CONSCIOUSNESS: Yes awake, Yes oriented to person, Yes oriented to place and Yes oriented to time HENMT: COMMON NORMALS: normocephalic, atraumatic and hearing grossly normal bilaterally HEAD & SCALP: normocephalic and atraumatic Eye: COMMON NORMALS: Equal, round and reactive pupils present, EOMs intact bilaterally and conjunctivae normal CONJUNCTIVA: Yes conjunctivae normal PUPIL: Yes Equal, round and reactive pupils present Neck/C-Spine: COMMON NORMALS: full ROM, supple and no JVD Chest: OTHER: Moderate tenderness palpation about the left lateral ribs. No overlying bruising or step-offs noted. No obvious deformity. Resp: COMMON NORMALS: normal respiratory effort, No retractions and No use of accessory muscles AUSCULTATION: wheezes scattered wheezes and throughout Cardio: COMMON NORMALS: no JVD, regular rate, regular rhythm, No clicks present (Cardio), No murmurs present (Cardio) and No rub (Cardio) RATE: regular rate RHYTHM: regular rhythm GI: COMMON NORMALS: Normal to inspection, nondistended, normoactive bowel sounds present, Soft to palpation and non-tender AUSCULTATION: Yes normoactive bowel sounds PALPATION: Yes Soft to palpation RECTAL EXAM: deferred Extremity: COMMON NORMALS: normal to inspection, full ROM and capillary refill normal Neuro: COMMON NORMALS: patient oriented x3, moves all extremities, no focal motor deficits and no sensory deficits noted SENSORIUM/ORIENTATION: Yes oriented to person, Yes oriented to place and Yes oriented to time Psych: COMMON NORMALS: mental status grossly normal and Normal thought process present THOUGHT PROCESS: Normal thought process present Skin: COMMON NORMALS: no rashes or lesions noted GENERAL SKIN EXAM: no rashes or lesions noted Course Vital Signs: Vital signs: Vital Signs Temperature 98.5 F 03/04/24 17:59 Pulse Rate 79 03/04/24 17:59 Respiratory Rate 14 03/04/24 17:59 Blood Pressure 139/74 03/04/24 17:59 Pulse Oximetry 92 03/04/24 17:59 Oxygen Delivery Me thod Room Air 03/04/24 17:59 MDM - Fall Medical Decision Making Patient seen for left side pain after falling yesterday. Reporting worsening pain with inspiration. Vitals on arrival stable. Condition has remained stable. X-ray of the ribs did show potential displaced left lateral fourth rib fracture. No pneumothorax or hemothorax was commented on. Upon correlation with examination, she did have equal breath sounds bilaterally, though she was diffusely wheezing due to her history of COPD. She does have albuterol inhaler and breathing treatments at home that she will take when she gets home. For her pain control, will prescribe her hydrocodone to take for breakthrough pain. I did have a thorough conversation with her in regards to avoiding reinjury as well as ice and other conservative therapies to the left ribs. Patient endorses understanding and reasons to return are discussed. Patient will be discharged home and encouraged to continue maintaining pulmonary hygiene to avoid potential lung infection. Lab Data Radiology Impressions Ribs X-Ray 03/04/24 18:05 IMPRESSION: 1. Questionable minimally displaced left lateral 4th rib fracture. No pneumothorax. Correlate with physical exam. 2. Worsening linear opacities in the lfhty-gjwinus-cdcl-left lung base is likely related to decreased lung volumes and basilar atelectasis. All radiology interpretation(s) finalized by discharge Discharge Plan Discharge Patient Disposition: Home Clinical Impression: Fracture of rib Qualifiers: Encounter type: initial encounter Rib fracture type: single rib Fracture type: closed Laterality: left Qualified Code(s): S22.32XA - Fracture of one rib, left side, initial encounter for closed fracture Condition: Stable Prescriptions: New hydrocodone-acetaminophen 7.5-300 mg tablet 1 tab PO BID PRN (Reason: pain) Qty: 14 0RF No Action diclofenac sodium 1 % gel 4 g TOPICAL QID 30 Days Qty: 300 5RF Rx Instructions: 2-4 g qid to affect area sodium chloride [Deep Sea Nasal] 0.65 % aerosol,spray 1 spray INTRANASAL TID [id number] [Butalbital Compound W/Codeine] [id number] mg capsule 1 cap PO Q6H PRN (Reason: headache) 30 Days Qty: 12 0RF Hold Instructions: Resume on 10/29/23. Rx Instructions: 1-2 DAILY PRN diclofenac sodium 1 % gel See Rx Instructions .ROUTE .COMPLEX Qty: 100 5RF Dose Instruction: APPLY TWO GRAM FOUR TIMES DAILY TO AFFECTED AREA NEEDED Rx Instructions: APPLY TWO GRAM FOUR TIMES DAILY TO AFFECTED AREA NEEDED triamcinolone acetonide 0.1 % cream 1 applic TOPICAL TID 30 Days Qty: 30 2RF lidocaine-prilocaine 2.5-2.5 % cream 1 applic topical ONCE 30 Days Qty: 30 1RF methenamine hippurate 1 gram tablet 1 g PO BID Qty: 60 5RF Rx Instructions: 1 pill twice a day with 1 g vitamin C each dose tizanidine 6 mg capsule 6 mg PO BID PRN (Reason: muscle spasticity) 30 Days Qty: 60 5RF cefdinir 300 mg capsule See Rx Instructions .ROUTE .COMPLEX PRN (Reason: uti) Dose Instruction: TAKE ONE CAPSULE BY MOUTH TWICE DAILY Rx Instructions: TAKE ONE CAPSULE BY MOUTH TWICE DAILY PRN; sucralfate [Carafate] 1 gram tablet 1 g PO BID 30 Days Qty: 60 5RF pravastatin 80 mg tablet 80 mg PO DAILY 30 Days Qty: 30 5RF montelukast [Singulair] 10 mg tablet 10 mg PO DAILY 30 Days Qty: 30 5RF levocetirizine [Xyzal] 5 mg tablet 5 mg PO BID 30 Days Qty: 60 5RF folic acid 1 mg tablet 1 mg PO DAILY 30 Days Qty: 30 5RF dicyclomine 20 mg tablet 20 mg PO BID Qty: 60 5RF citalopram 40 mg tablet 40 mg PO DAILY 30 Days Qty: 30 5RF calcium carbonate-vitamin D3 [Os-Maximino 500 + D3] 500 mg-15 mcg (600 unit) tablet 1 tab PO BID 30 Days Qty: 60 5RF buspirone 15 mg tablet 15 mg PO BID 30 Days Qty: 60 5RF azelastine 137 mcg (0.1 %) aerosol,spray 2 spray INTRANASAL BID 30 Days Qty: 30 5RF Rx Instructions: administer into each nostril amitriptyline 75 mg tablet See Rx Instructions .ROUTE .COMPLEX Qty: 30 5RF Dose Instruction: TAKE ONE TABLET BY MOUTH AT BEDTIME NEEDED FOR INSOMNIA Rx Instructions: TAKE ONE TABLET BY MOUTH AT BEDTIME NEEDED FOR INSOMNIA albuterol sulfate [ProAir HFA] 90 mcg/actuation HFA aerosol inhaler 2 puff INHALATION Q4H PRN (Reason: shortness of breath or wheezing) 30 Days Qty: 1 5RF albuterol sulfate 2.5 mg /3 mL (0.083 %) solution for nebulization 2.5 mg INHALATION QID PRN (Reason: shortness of breath or wheezing) 30 Days Qty: 360 5RF promethazine-DM 6.25-15 mg/5 mL syrup 5 - 10 ml PO Q6H PRN (Reason: cough) Qty: 240 0RF sumatriptan succinate 100 mg tablet See Rx Instructions PO .COMPLEX Qty: 20 4RF Rx Instructions: take 1 tab at onset of headache; if no relief, may repeat 1 tab after at least 2 hrs; max = 2 tabs/24 hrs PO naloxone [Narcan] 4 mg/actuation spray,non-aerosol 1 spray intranasal Q2M Qty: 2 2RF Rx Instructions: spray 1 dose into ONE nostril, may repeat in 2-3 minutes in OTHER nostril if no response, no more than 2 doses budesonide-formoterol [Symbicort] 80-4.5 mcg/actuation HFA aerosol inhaler 2 puff inhalation BID Qty: 10.2 6RF Trelegy Ellipta 100-62.5-25 mcg blister with device 1 inh inhalation DAILY Qty: 60 6RF gabapentin 800 mg tablet See Rx Instructions .ROUTE .COMPLEX Qty: 120 5RF Dose Instruction: TAKE ONE TABLET BY MOUTH FOUR TIMES DAILY Rx Instructions: TAKE ONE TABLET BY MOUTH TID oxycodone 5 mg tablet 5 mg PO Q6H PRN (Reason: pain) Qty: 20 0RF Colace 100 mg capsule 100 mg PO BID Qty: 14 0RF Discharge Orders: Discharge ED (Routine); Ordered 03/04/24 Ordered By: Nirmal Carrasco Referrals: Enedelia Marina FNP-C [Primary Care Provider] - Discharge Diet: Usual diet Discharge Activity: Limit activity as instructed Patient Instructions: Rib Fracture (ED), Opioid Safety, Pain Management Activity Restrictions/Additional Instructions: Limit activity as instructed. Hydrocodone for breakthrough pain. Pulmonary hygiene as discussed. Follow-up with primary care. Return if you develop any new or concerning symptoms. Coding Level of Care Code ED High Pressure Kettle Operator for Chg Fwd Documented by User: Real Garcia DO 03/05/24 14:56 HPI - Fall General: Chief Complaint: Fall Stated Complaint: fall, rib pain Time Seen by Provider: 03/04/24 18:57 PFSH ED PFSH: Medical History Vitamin D deficiency Essential (primary) hypertension Other iron deficiency anemias Gross hematuria Breast Cancer Screening Urgency incontinence Chronic cystitis Thyroid nodule Smoker unmotivated to quit Chronic kidney disease, stage 3 (moderate) Recurrent UTI Carpal tunnel syndrome of right wrist Cervical disc disorder, unspecified, unspecified cervical region Occipital neuralgia Lumbosacral spondylosis with radiculopathy Spondylolisthesis of cervical region Radiculopathy, lumbar region Chronic migraine without aura, not intractable, without status migrainosus DDD (degenerative disc disease), lumbar Cervical spondylosis with radiculopathy Opioid contract exists Encounter for long-term use of opiate analgesic Facet joint disease Smoker Unmotivated to quit Environmental and seasonal allergies GERD without esophagitis Hyperlipemia IBS (irritable bowel syndrome) Surgical History Hx of tonsillectomy H/O wrist surgery History of tubal ligation S/P shoulder surgery History of throat surgery H/O knee surgery Social History Smoking and tobacco/nicotine status: current every day tobacco/nicotine user cigarettes Packs smoked per day: 1.5 Years cigarettes smoked: 40 Alcohol intake: never Substance/Drug Use: never Adopted: Yes Caregiver/support person: No Lives independently: Yes Marital status: / service: No Current occupational status: disabled Do you think of yourself as: Straight/Heterosexual Current gender identity: Female Course Vital Signs: Vital signs: Vital Signs Temperature 98.5 F 03/04/24 17:59 Pulse Rate 79 03/04/24 17:59 Respiratory Rate 14 03/04/24 17:59 Blood Pressure 139/74 03/04/24 17:59 Pulse Oximetry 92 03/04/24 17:59 Oxygen Delivery Me thod Room Air 03/04/24 17:59 MDM - Fall Medical Decision Making Patient seen for left side pain after falling yesterday. Reporting worsening pain with inspiration. Vitals on arrival stable. Condition has remained stable. X-ray of the ribs did show potential displaced left lateral fourth rib fracture. No pneumothorax or hemothorax was commented on. Upon correlation with examination, she did have equal breath sounds bilaterally, though she was diffusely wheezing due to her history of COPD. She does have albuterol inhaler and breathing treatments at home that she will take when she gets home. For her pain control, will prescribe her hydrocodone to take for breakthrough pain. I did have a thorough conversation with her in regards to avoiding reinjury as well as ice and other conservative therapies to the left ribs. Patient endorses understanding and reasons to return are discussed. Patient will be discharged home and encouraged to continue maintaining pulmonary hygiene to avoid potential lung infection. Chart reviewed Lab Data Radiology Impressions Ribs X-Ray 03/04/24 18:05 IMPRESSION: 1. Questionable minimally displaced left lateral 4th rib fracture. No pneumothorax. Correlate with physical exam. 2. Worsening linear opacities in the qbrjp-tzrrydn-tdtb-left lung base is likely related to decreased lung volumes and basilar atelectasis. Discharge Plan Discharge Patient Disposition: Home Clinical Impression: Fracture of rib Qualifiers: Encounter type: initial encounter Rib fracture type: single rib Fracture type: closed Laterality: left Qualified Code(s): S22.32XA - Fracture of one rib, left side, initial encounter for closed fracture Condition: Stable Prescriptions: New hydrocodone-acetaminophen 7.5-300 mg tablet 1 tab PO BID PRN (Reason: pain) Qty: 14 0RF No Action diclofenac sodium 1 % gel 4 g TOPICAL QID 30 Days Qty: 300 5RF Rx Instructions: 2-4 g qid to affect area sodium chloride [Deep Sea Nasal] 0.65 % aerosol,spray 1 spray INTRANASAL TID [id number] [Butalbital Compound W/Codeine] [id number] mg capsule 1 cap PO Q6H PRN (Reason: headache) 30 Days Qty: 12 0RF Hold Instructions: Resume on 10/29/23. Rx Instructions: 1-2 DAILY PRN diclofenac sodium 1 % gel See Rx Instructions .ROUTE .COMPLEX Qty: 100 5RF Dose Instruction: APPLY TWO GRAM FOUR TIMES DAILY TO AFFECTED AREA NEEDED Rx Instructions: APPLY TWO GRAM FOUR TIMES DAILY TO AFFECTED AREA NEEDED triamcinolone acetonide 0.1 % cream 1 applic TOPICAL TID 30 Days Qty: 30 2RF lidocaine-prilocaine 2.5-2.5 % cream 1 applic topical ONCE 30 Days Qty: 30 1RF methenamine hippurate 1 gram tablet 1 g PO BID Qty: 60 5RF Rx Instructions: 1 pill twice a day with 1 g vitamin C each dose tizanidine 6 mg capsule 6 mg PO BID PRN (Reason: muscle spasticity) 30 Days Qty: 60 5RF cefdinir 300 mg capsule See Rx Instructions .ROUTE .COMPLEX PRN (Reason: uti) Dose Instruction: TAKE ONE CAPSULE BY MOUTH TWICE DAILY Rx Instructions: TAKE ONE CAPSULE BY MOUTH TWICE DAILY PRN; sucralfate [Carafate] 1 gram tablet 1 g PO BID 30 Days Qty: 60 5RF pravastatin 80 mg tablet 80 mg PO DAILY 30 Days Qty: 30 5RF montelukast [Singulair] 10 mg tablet 10 mg PO DAILY 30 Days Qty: 30 5RF levocetirizine [Xyzal] 5 mg tablet 5 mg PO BID 30 Days Qty: 60 5RF folic acid 1 mg tablet 1 mg PO DAILY 30 Days Qty: 30 5RF dicyclomine 20 mg tablet 20 mg PO BID Qty: 60 5RF citalopram 40 mg tablet 40 mg PO DAILY 30 Days Qty: 30 5RF calcium carbonate-vitamin D3 [Os-Maximino 500 + D3] 500 mg-15 mcg (600 unit) tablet 1 tab PO BID 30 Days Qty: 60 5RF buspirone 15 mg tablet 15 mg PO BID 30 Days Qty: 60 5RF azelastine 137 mcg (0.1 %) aerosol,spray 2 spray INTRANASAL BID 30 Days Qty: 30 5RF Rx Instructions: administer into each nostril amitriptyline 75 mg tablet See Rx Instructions .ROUTE .COMPLEX Qty: 30 5RF Dose Instruction: TAKE ONE TABLET BY MOUTH AT BEDTIME NEEDED FOR INSOMNIA Rx Instructions: TAKE ONE TABLET BY MOUTH AT BEDTIME NEEDED FOR INSOMNIA albuterol sulfate [ProAir HFA] 90 mcg/actuation HFA aerosol inhaler 2 puff INHALATION Q4H PRN (Reason: shortness of breath or wheezing) 30 Days Qty: 1 5RF albuterol sulfate 2.5 mg /3 mL (0.083 %) solution for nebulization 2.5 mg INHALATION QID PRN (Reason: shortness of breath or wheezing) 30 Days Qty: 360 5RF promethazine-DM 6.25-15 mg/5 mL syrup 5 - 10 ml PO Q6H PRN (Reason: cough) Qty: 240 0RF sumatriptan succinate 100 mg tablet See Rx Instructions PO .COMPLEX Qty: 20 4RF Rx Instructions: take 1 tab at onset of headache; if no relief, may repeat 1 tab after at least 2 hrs; max = 2 tabs/24 hrs PO naloxone [Narcan] 4 mg/actuation spray,non-aerosol 1 spray intranasal Q2M Qty: 2 2RF Rx Instructions: spray 1 dose into ONE nostril, may repeat in 2-3 minutes in OTHER nostril if no response, no more than 2 doses budesonide-formoterol [Symbicort] 80-4.5 mcg/actuation HFA aerosol inhaler 2 puff inhalation BID Qty: 10.2 6RF Trelegy Ellipta 100-62.5-25 mcg blister with device 1 inh inhalation DAILY Qty: 60 6RF gabapentin 800 mg tablet See Rx Instructions .ROUTE .COMPLEX Qty: 120 5RF Dose Instruction: TAKE ONE TABLET BY MOUTH FOUR TIMES DAILY Rx Instructions: TAKE ONE TABLET BY MOUTH TID oxycodone 5 mg tablet 5 mg PO Q6H PRN (Reason: pain) Qty: 20 0RF Colace 100 mg capsule 100 mg PO BID Qty: 14 0RF Discharge Orders: Discharge ED (Routine); Ordered 03/04/24 Ordered By: Nirmal Carrasco Referrals: Enedelia Marina FNP-C [Primary Care Provider] - Discharge Diet: Usual diet Discharge Activity: Limit activity as instructed Patient Instructions: Rib Fracture (ED), Opioid Safety, Pain Management Activity Restrictions/Additional Instructions: Limit activity as instructed. Hydrocodone for breakthrough pain. Pulmonary hygiene as discussed. Follow-up with primary care. Return if you develop any new or concerning symptoms. Coding Level of Care Code ED High Pressure Kettle Operator for Ti Caicedo
[2024-03-04] MEDS: HYDROcodone-acetaminophen 7.5-325 mg Tablet 1 TAB PO (19:38)
== END 2024-03-04 19:44 | disposition home or self-care (01) ==
PROVIDERS: Emergency Provider Physician Assistant; PCP Nurse Practitioner Family
DX: S22.32XA Fracture of one rib, left side, initial encounter for closed fracture (principal); F17.210 Nicotine dependence, cigarettes, uncomplicated; I12.9 Hypertensive chronic kidney disease with stage 1 through stage 4 chronic kidney disease, or unspecified chronic kidney disease; N18.30 Chronic kidney disease, stage 3 unspecified; E78.5 Hyperlipidemia, unspecified; W01.0XXA Fall on same level from slipping, tripping and stumbling without subsequent striking against object, initial encounter
CPT/HCPCS: 71101; 99283

== ENCOUNTER → 2024-05-02 15:38 | Outpatient (BNVA) | payer MEDICAID, SELFPAY | PROVIDERS: PCP Nurse Practitioner Family; Visit Provider Nurse Practitioner Family | DX: R39.9 Unspecified symptoms and signs involving the genitourinary system (principal); J44.9 Chronic obstructive pulmonary disease, unspecified; K21.9 Gastro-esophageal reflux disease without esophagitis | CPT/HCPCS: 80053; 80061; 81000; 84443; 85025 ==

== ENCOUNTER 2024-05-21 15:21 | Outpatient (CLI) | payer MEDICAID, SELFPAY ==
--- NOTE | 2024-05-21 15:30 | CT_ITS ---
WS: [id number] CT chest wo con [id number] HISTORY: R91.1 - Solitary pulmonary nodule TECHNIQUE: Axial imaging performed through the thorax. Coronal and sagittal reformats are submitted. All CT scans at [facility] use at least one of these dose optimization techniques: automated exposure control; mA and/or kV adjustment per patient size (includes targeted exams where dose is mat ched to clinical indication); or iterative reconstruction. CONTRAST: None DLP: 375.34 mGy.cm COMPARISON: 09/13/2023, 03/12/2019 Lungs and central airway: Centrilobular and paraseptal emphysema with mild progression since 2019. Lo ng-term stability of a perifissural nodule along the superior LEFT major fissure measures 5 mm. No ne w nodule or mass identified. No new pneumonia. Subsegmental atelectasis at the lingula and at the harjinder g bases. Pleura: Normal. No pleural effusion. Heart and pericardium: Normal size heart with no pericardial effusion. Mediastinum and [place]: Hilar evaluation is limited without IV contrast. No pathologic lymph nodes iden tified. Vessels: Mild to moderate atherosclerosis aorta. No aneurysm. Pulmonary artery is slightly dilated. Chest wall and lower neck: No soft tissue masses. Upper abdomen: Small hiatal hernia. Prior cholecystectomy. Very mild stable thickening of the LEFT ad renal gland. This is probably a very small adenoma measuring 12 mm. Osseous structures: Slight increase in thoracic kyphosis. Mild anterior wedging of L2, chronic. Remot e healed rib fractures anterolateral LEFT thorax. CT/CT chest wo con [id number] IMPRESSION: 1. No new pulmonary nodule. Long-term stability of a previously described LEFT perifissural nodule, 5 mm. 2. Paraseptal and centrilobular emphysema with mild progression since 2019. 3. Subsegmental atelectasis at the lingula and dependent changes at the lung b ases. 4. Mild to moderate atherosclerosis aorta. 5. Slightly dilated pulmonary artery. 6. Small LEFT adrenal adenoma. 7. Prior cholecystectomy.
== END 2024-05-21 15:22 | disposition home or self-care (01) ==
LOC: RAD 15:22
PROVIDERS: PCP Nurse Practitioner Family; Visit Provider Nurse Practitioner Family
DX: R91.1 Solitary pulmonary nodule (principal); J44.9 Chronic obstructive pulmonary disease, unspecified; J43.2 Centrilobular emphysema; I70.0 Atherosclerosis of aorta; D35.02 Benign neoplasm of left adrenal gland; Z90.49 Acquired absence of other specified parts of digestive tract
CPT/HCPCS: 71250

== ENCOUNTER → 2024-09-26 15:23 | Outpatient (BNVA) | payer MEDICAID, SELFPAY | PROVIDERS: PCP Nurse Practitioner; Visit Provider Nurse Practitioner | DX: J44.9 Chronic obstructive pulmonary disease, unspecified (principal) | CPT/HCPCS: 85025 ==

== ENCOUNTER 2024-10-04 13:14 | Outpatient (CLI) | payer MEDICAID, SELFPAY ==
--- NOTE | 2024-10-04 14:00 | US_ITS ---
WS: [id number] THYROID ULTRASOUND HISTORY: E04.1 - Nontoxic single thyroid nodule COMPARISON: 03/12/2019 Right lobe: 1.3 cm x 1.4 cm x 5.8 cm (w x ap x l). Volume: 4.7 cm3. Normal sized gland. There are few tiny colloid cysts. No dominant solid mass or increased vascularity . Left lobe: 1.6 cm x 1.4 cm x 4.1 cm (w x ap x l). Volume: 4.4 cm3. Normal size and echotexture. No significant or dominant nodules are present. Isthmus: 0.3 cm. Small left-sided cervical chain lymph nodes. US/US thyroid [id number] IMPRESSION: 1. No solid thyroid mass or suspicious mass for which biopsy should be recomme nded. 2. Small RIGHT colloid cysts.
== END 2024-10-04 13:15 | disposition home or self-care (01) ==
LOC: RAD 13:14
PROVIDERS: PCP Nurse Practitioner; Visit Provider Nurse Practitioner
DX: E04.1 Nontoxic single thyroid nodule (principal)
CPT/HCPCS: 76536

== ENCOUNTER → 2024-11-06 12:30 | Outpatient (BNVA) | payer MEDICAID, SELFPAY | PROVIDERS: PCP Nurse Practitioner; Visit Provider Internal Medicine Cardiovascular Disease | DX: I12.9 Hypertensive chronic kidney disease with stage 1 through stage 4 chronic kidney disease, or unspecified chronic kidney disease (principal); N18.30 Chronic kidney disease, stage 3 unspecified; R07.9 Chest pain, unspecified; F17.210 Nicotine dependence, cigarettes, uncomplicated | CPT/HCPCS: 99204 ==

== ENCOUNTER 2024-11-18 09:04 | Outpatient (CLI) | payer MEDICAID, SELFPAY ==
--- NOTE | 2024-11-18 | ECG_ITS ---
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 The perfusion scan will be documented separately. DATA: Baseline heart rate was 61 beats per minute. Baseline blood pressure was 152/63 millimeters of mercury. Target heart rate was 156. Maximum heart rate achieved was 74. which was 47% of the predicted target heart rate. Maximum blood pressure was 154/71 millimeters of mercury. The reason for ending the test was maximum effort achieved. The patient did not experience shortness of breath ELECTROCARDIOGRAM: BASELINE: Sinus rhythm. Normal axis. Otherwise, no ST-T changes suggestive of ischemia noted. No arrhythmia noted. EXERCISE: After Lexiscan injection, no ST-T changes suggestive of ischemic noted. No arrhythmia noted. CONCLUSION: Please note due to baseline abnormality of the EKG specificity and sensitivity of the EKG portion of LexiScan MIBI stress test will be low 1. EKG not suggestive of ischemia 2. Lexiscan injection unremarkable. 3. Perfusion scan will be documented separately. Electronically Signed On 11-30-2024 20:47:07 FRUIT II FARMWORKER by RYAN CARMONA [email or web address]
--- NOTE | 2024-11-18 08:42 | NMCV_ITS ---
NM marcelle perf SPECT r/s* [id number] Lizabeth Paez Age: 63 Gender: F : 1960 Exam Date: 11/18/2024 10:42 Ordering Phys: Ryan Carmona MD ([email or web address]) Technologist: PORTIA Foreman Exam Location: [facility] Indications: CP STRESS TEST Please see separate stress test report in [facility] for full findings IMAGE PROTOCOL Rest/Stress 1 Lexiscan Day Radiopharmaceutical Dose (mCi) Administration Site Administered by Rest: Tc-99m 10.3 IV Etelvina Cummings HAND BULLDOZER Sestamibi Stress:Tc-99m 32.7 IV Etelvina Cummings, HAND BULLDOZER Sestamibi Rest: 18-Nov-2024 60 Discovery 630 Stress: 18-Nov-2024 30 Discovery 630 0.4mg Lexiscan. Images obtained in supine and prone position. SPECT RESULTS Technical Quality: Good Raw Data Analysis: Normal Image Corrections: No attenuation or motion correction applied Summed Stress Score: 7 Summed Rest Score: 8 Summed Difference Score: 2 PERFUSION FINDINGS Large area of patchy persistently decreased fixed perfusion defect noted in basal to distal inferior basal to mid inferolateral and distal apical wall suggestive of artifact versus old myocardial infarction in the absence of wall motion abnormality. FUNCTIONAL RESULTS (calculated via Gated SPECT) Stress Image LV EF (%): 74 Stress EDV (mL):103 TID: 0.95 Stress ESV (mL):27 FUNCTIONAL FINDINGS: There is normal left ventricular systolic function. IMPRESSIONS Large area of persistent decreased tracer uptake noted in basal to distal inferior, basal to mid inferolateral and distal apical wall which in the absence of wall motion abnormality could be an artifact. This study is negative for ischemia. EKG segment will be documented separately. Ryan Carmona MD (Electronically Signed) Final Date: 19 November 2024 00:04 S
[2024-11-18 09:08] VITALS: BMI 29.5
[2024-11-18] MEDS: regadenoson 0.4 Mg/5 ml Syringe IVP (11:00)
[2024-11-18 11:15] VITALS: BP 136/62; PULSE 67
== END 2024-11-18 09:05 | disposition home or self-care (01) ==
LOC: CDL 09:05
PROVIDERS: PCP Nurse Practitioner; Visit Provider Internal Medicine Cardiovascular Disease
DX: R07.9 Chest pain, unspecified (principal); R93.89 Abnormal findings on diagnostic imaging of other specified body structures
CPT/HCPCS: 36415; 78452; 93017; 96374; A9500; J2785

== ENCOUNTER 2024-11-18 14:11 | Outpatient (CLI) | payer MEDICAID, SELFPAY ==
--- NOTE | 2024-11-18 15:45 | USR_ITS ---
PROCEDURE INFORMATION: Exam: US Duplex Bilateral Lower Extremity Arteries Exam date and time: 11/18/2024 2:19 PM Age: 63 years old Clinical indication: Pain; Leg, lower; Bilateral; Prior surgery; Surgery date: 6+ months; Surgery type: Bilat knee replacement; Additional info: Pad, cauldication TECHNIQUE: Imaging protocol: Real-time ultrasound scan of the arteries of the bilateral lower extremities with 2-D guzman scale, color Doppler flow and spectral waveform analysis. Images documented and saved. COMPARISON: MR knee RT wo con* [id number] 07/18/2019 3:13 PM FINDINGS: Right common femoral artery: No occlusion or significant stenosis. Normal waveform. Right superficial femoral artery: No occlusion or significant stenosis. Normal waveform. Right popliteal artery: No occlusion or significant stenosis. Normal waveform. Right calf/foot arteries: Right FATMATA equals 1.1 Left common femoral artery: No occlusion or significant stenosis. Normal waveform. Left superficial femoral artery: No occlusion or significant stenosis. Normal waveform. Left popliteal artery: No occlusion or significant stenosis. Normal waveform. Left calf/foot arteries: Left FATMATA equals 1.1 US/CV arterial duplex [facility] [id number] IMPRESSION: No stenosis or occlusion.
== END 2024-11-18 14:12 | disposition home or self-care (01) ==
LOC: RAD 14:12
PROVIDERS: PCP Nurse Practitioner; Visit Provider Internal Medicine Cardiovascular Disease
DX: I73.9 Peripheral vascular disease, unspecified (principal)
CPT/HCPCS: 93925

== ENCOUNTER 2025-02-04 06:00 | Outpatient (CLI) | payer MEDICAID, SELFPAY | END 2025-02-04 06:01 | disposition home or self-care (01) | LOC: LAB 02-05 06:57 | PROVIDERS: PCP Nurse Practitioner; Visit Provider Nurse Practitioner | DX: E78.2 Mixed hyperlipidemia (principal); E04.1 Nontoxic single thyroid nodule; E55.9 Vitamin D deficiency, unspecified | CPT/HCPCS: 80053; 82306; 84443 ==

== ENCOUNTER → 2025-05-07 16:43 | Outpatient (BNVA) | payer MEDICAID, SELFPAY | PROVIDERS: PCP Nurse Practitioner; Visit Provider Nurse Practitioner | DX: E78.2 Mixed hyperlipidemia (principal); E55.9 Vitamin D deficiency, unspecified | CPT/HCPCS: 80053; 82306 ==